=== PATIENT | female | born 1990 | race Caucasian/White ===

== ENCOUNTER 2019-01-11 06:29 | Emergency (ER) | payer OTHER ==
--- NOTE | 2019-01-11 06:50 | ED Physician Documentation ---
PD HPI FEMALE - Stated complaint Stated Complaint: FEMALE - Chief complaint Chief Complaint: General - History obtained from History obtained from: Patient - History of Present Illness Timing - onset: How many days ago (2) Timing - duration: Days (2) Timing - details: Gradual onset, Still present (She has had 2 days of lower abdominal cramping and initially spotting of blood but then has had increased bleeding passage of small clots and red blood. She states comparatively its less bleeding than a menstrual period but more than just spotting. She denies any nausea fevers or lightheadedness. She talked to her TESTING AND REGULATING TECHNICIAN who referred her in to the ER for evaluation and ultrasound.), Waxing and waning Associated symptoms: Pelvic pain (more left sided lower abd pain/cramping), Vaginal bleeding. No: Fever Contributing factors: (7 weeks by dates) [employer] History: G (3), P (2) Similar symptoms before: Has not had sx before Review of Systems Constitutional: denies: Fever Nose: reports: Rhinorrhea / runny nose, Congestion Throat: reports: Sore throat (had URI symptoms for few days and is improved) Respiratory: denies: Dyspnea, Cough GI: denies: Nausea, Vomiting, Diarrhea : reports: Vaginal bleeding. denies: Dysuria, Discharge Neurologic: denies: Generalized weakness, Near syncope PD PAST MEDICAL HISTORY - Past Medical History Cardiovascular: None Respiratory: None Neuro: None Endocrine/Autoimmune: None - Allergies Allergies/Adverse Reactions: Allergies Allergy/AdvReac Type Severity Reaction Status Date / Time No Known Drug Allergies Allergy Verified 01/11/19 06:34 PD ED PE NORMAL - Vitals Vital signs reviewed: Yes - General General: Alert and oriented X 3, No acute distress, Well developed/nourished - Cardiac Cardiac: RRR, No murmur - Respiratory Respiratory: Clear bilaterally - Abdomen Abdomen: Normal bowel sounds, Soft, Non distended, No organomegaly, Other (some tenderness without guarding LLQ/suprapubic area. ) - Female Female : Deferred - Derm Derm: Normal color, Warm and dry Results - Vitals Vitals: Vital Signs - 24 hr 01/11/19 06:31 Temperature 37.0 C Heart Rate 113 H Respiratory 16 Rate Blood Pressure 130/75 O2 Saturation 100 Oxygen O2 Source Room air PD MEDICAL DECISION MAKING - ED course Complexity details: considered differential (early with vag bleeding and pelvic cramping, more to left. Will get U/S, CBC, HCG and blood type. Tried to distinguish viability with spotting versus miscarriage versus threatened miscarriage versus ectopic.), d/w patient Departure - Departure Clinical Impression: Vaginal bleeding affecting early
[2019-01-11 07:24] LABS: BASOPHILS % (AUTO) 0.3 %; EOSINOPHILS # (AUTO) 0.1 10^3/uL (0.0-0.7); HGB - HEMOGLOBIN 13.4 g/dL (12.0-16.0); LYMPHOCYTES % (AUTO) 12.9 %; MEAN CORPUSCULAR HEMOGLOBIN 29.1 pg (27.0-31.0); MEAN CORPUSCULAR HGB CONC 32.2 g/dL (32.0-36.0); MEAN CORPUSCULAR VOLUME 90.4 fL (81.0-99.0); MEAN PLATELET VOLUME 10.5 fL (7.9-10.8); MONOCYTES # (AUTO) 0.5 10^3/uL (0.0-1.0); MONOCYTES % (AUTO) 6.2 %; NEUTROPHILS # (AUTO) 6.2 10^3/uL (1.5-6.6); NEUTROPHILS % (AUTO) 79.3 %; PLT - PLATELET COUNT 205 10^3/uL (130-450); RED CELL DISTRIBUTION WIDTH 12.2 % (12.0-15.0); WHITE BLOOD COUNT 7.8 x10^3/uL (4.8-10.8)
[2019-01-11 07:35] LABS: ALBUMIN 4.7 g/dL (3.2-5.5); ALBUMIN/GLOBULIN RATIO 1.7 (1.0-2.2); BILIRUBIN,TOTAL 0.7 mg/dL (0.2-1.0); CALCIUM 9.3 mg/dL (8.5-10.3); CREATININE 0.6 mg/dL (0.4-1.0); TOTAL PROTEIN 7.5 g/dL (6.7-8.2)
--- NOTE | 2019-01-11 08:31 | Ultrasound Report ---
Reason: early preg, left lower abd pain/vag bleed Procedure Date: 01/11/2019 Accession Number: [id number] / [id number] Procedure: US - OB First Trimester CPT Code: Final Report FULL RESULT: EXAM: FIRST TRIMESTER OBSTETRIC ULTRASOUND (Less than 11 weeks) EXAM DATE: 01/11/2019 08:16 AM. CLINICAL HISTORY: 28-year-old female. Early preg, left lower abd pain/vag bleed. LMP: 11/24/2018. COMPARISONS: None. TECHNIQUE: Transabdominal and transvaginal ultrasound examination with static image documentation. CLINICAL DATES: EGA 6 weeks 6 days with OLEGARIO 08/31/2019 based on LMP. ASSESSMENT: Gestational Sac: Single in the lower uterine segment. Mean gestational sac diameter: 7.0 mm = 5 weeks 3 days. Embryo: CRL (crown-rump length) 3.5 mm = 6 weeks 0 days. Cardiac activity: 129 beats per minute. Yolk sac: 3.0 mm. Amniotic fluid: Not accurately assessed at this gestational age. Early placenta: Not visible at this gestational age. Other: Tiny 1.2 x 0.5 x 1.3 cm superior and 0.6 x 0.2 x 0.4 cm inferior perigestational fluid collections demonstrated. MATERNAL STRUCTURES: Uterus: Retroverted. Unremarkable. Cervix: Closed. Right Ovary/Adnexa: The ovary measures 2.6 x 1.8 x 1.3 cm, volume 3.2 cc. Unremarkable. Left Ovary/Adnexa: The ovary measures 2.1 x 2.3 x 2.1 cm, volume 5.4 cc. 0.9 x 1.0 x 1.2 cm hypoechoic focus, possibly a corpus luteum. Free Fluid: None. Other: None. IMPRESSION: 1. Single viable intrauterine in the lower uterine segment at EGA 6 weeks 0 days with OLEGARIO 09/06/2019 based on crown-rump length, which is concordant with clinical dates. 2. Assigned dating is OLEGARIO 08/31/2019 based on LMP. 3. Minimal perigestational fluid/hemorrhage. 4. Cervix closed. 5. Correlate with serial quantitative beta hCG. RADIA
[2019-01-11 08:46] VITALS: BP 118/72
--- NOTE | 2019-01-11 09:00 | ED Physician Documentation ---
ED Addendum - Addendum Addendum: 01/11/19 08:58 I took over the patient with Dr. Rosa. Her hCG is 2596. Her pelvic ultrasound reveals an intrauterine gestation approximately 6 weeks and 0 days. There is a corpus luteum cyst on the left. We will have her follow-up with OB for further care. Patient counseled regarding signs and symptoms for which I believe and urgent re-evaluation would be necessary. Patient with good understanding of and agreement to plan and is comfortable going home at this time This document was made in part using voice recognition software. While efforts are made to proofread this document, sound alike and grammatical errors may occur. IMPRESSION: 1. Single viable intrauterine in the lower uterine segment at EGA 6 weeks 0 days with OLEGARIO 09/06/2019 based on crown-rump length, which is concordant with clinical dates. 2. Assigned dating is OLEGARIO 08/31/2019 based on LMP. 3. Minimal perigestational fluid/hemorrhage. 4. Cervix closed. 5. Correlate with serial quantitative beta hCG. Departure - Departure Disposition: 01 Home, Self Care Clinical Impression: Vaginal bleeding affecting early Condition: Good Instructions: ED Miscarriage Poss Follow-Up: Chaka Barrow MD [Primary Care Provider] - Within 1 week Comments: Follow-up with your doctor for further care. Return if you worsen. You appear to have a viable intrauterine that is approximately 6 weeks and 0 days along. Your hCG is 2596 and your doctor may want to repeat this in 3 to 4 days to ensure that it is rising adequately.
[2019-01-11 09:20] LABS: BILIRUBIN,URINE NEGATIVE (NEGATIVE); GLUCOSE, URINE (UA) NEGATIVE (NEGATIVE); KETONES,URINE (UA) NEGATIVE (NEGATIVE); LEUKOCYTE ESTERASE, URINE NEGATIVE (NEGATIVE); NITRITE,URINE NEGATIVE (NEGATIVE); OCCULT BLOOD,URINE LARGE (NEGATIVE); PH,URINE 7.5 PH (5.0-7.5); PROTEIN,URINE NEGATIVE (NEGATIVE); UROBILINOGEN,URINE 0.2 (NORMAL) E.U./dL (NORMAL)
[2019-01-11 09:28] LABS: CLARITY,URINE HAZY (CLEAR)
[2019-01-11 09:41] LABS: BACTERIA,URINE Few /HPF (None Seen); RBC,URINE 0-5 /HPF (0-5); SQUAMOUS EPITHELIAL CELL,UR FEW Squamous (<= Few)
== END 2019-01-11 09:58 | disposition home or self-care (01) ==
LOC: ED 06:29
DX: O46.91 Antepartum hemorrhage, unspecified, first trimester (principal); Z3A.01 Less than 8 weeks gestation of pregnancy
CPT/HCPCS: 36415; 76801; 76817; 80053; 81001; 81003; 83690; 84702; 85025; 86850; 86900; 86901; 87086; 99282; 99284

== ENCOUNTER 2019-01-13 09:19 | Outpatient (CLI) | payer OTHER ==
[2019-01-13 09:50] LABS: BASOPHILS % (AUTO) 0.6 %; EOSINOPHILS # (AUTO) 0.2 10^3/uL (0.0-0.7); EOSINOPHILS % (AUTO) 2.9 %; HGB - HEMOGLOBIN 12.8 g/dL (12.0-16.0); LYMPHOCYTES # (AUTO) 1.7 10^3/uL (1.5-3.5); MEAN CORPUSCULAR HEMOGLOBIN 29.5 pg (27.0-31.0); MEAN CORPUSCULAR HGB CONC 32.7 g/dL (32.0-36.0); MEAN CORPUSCULAR VOLUME 90.3 fL (81.0-99.0); MEAN PLATELET VOLUME 9.3 fL (7.9-10.8); MONOCYTES # (AUTO) 0.5 10^3/uL (0.0-1.0); MONOCYTES % (AUTO) 6.9 %; NEUTROPHILS # (AUTO) 4.1 10^3/uL (1.5-6.6); NEUTROPHILS % (AUTO) 63.1 %; PLT - PLATELET COUNT 259 10^3/uL (130-450); RED BLOOD COUNT 4.34 10^6/uL (4.20-5.40); RED CELL DISTRIBUTION WIDTH 11.9 % (12.0-15.0); WHITE BLOOD COUNT 6.5 x10^3/uL (4.8-10.8)
[2019-01-13 09:50] LABS: MUDS CUTOFF CONCENTRATIONS CUTOFF CONC BELOW:
[2019-01-13 09:58] LABS: BILIRUBIN,URINE NEGATIVE (NEGATIVE); GLUCOSE, URINE (UA) NEGATIVE (NEGATIVE); KETONES,URINE (UA) NEGATIVE (NEGATIVE); LEUKOCYTE ESTERASE, URINE TRACE (NEGATIVE); NITRITE,URINE NEGATIVE (NEGATIVE); OCCULT BLOOD,URINE LARGE (NEGATIVE); PROTEIN,URINE NEGATIVE (NEGATIVE); UROBILINOGEN,URINE 0.2 (NORMAL) E.U./dL (NORMAL)
[2019-01-13 10:08] LABS: CLARITY,URINE HAZY (CLEAR); RBC,URINE 0-5 /HPF (0-5)
[2019-01-13 10:09] LABS: BACTERIA,URINE Few /HPF (None Seen); SQUAMOUS EPITHELIAL CELL,UR MOD Squamous (<= Few)
[2019-01-13 10:12] LABS: AMPHETAMINE SCREEN,URINE NEGATIVE (NEGATIVE); BENZODIAZEPINES SCREEN, URINE NEGATIVE (NEGATIVE); COCAINE SCREEN URINE NEGATIVE (NEGATIVE); METHADONE SCREEN, URINE NEGATIVE (NEGATIVE); METHAMPHETAMINES SCREEN, URINE NEGATIVE (NEGATIVE); OPIATE SCREEN, URINE NEGATIVE (NEGATIVE); OXYCODONE SCREEN, URINE NEGATIVE (NEGATIVE); PROPOXYPHENE SCREEN, URINE NEGATIVE (NEGATIVE); TRICYCLIC ANTIDEPRESSANT,URINE NEGATIVE (NEGATIVE)
[2019-01-14 11:40] LABS: HEPATITIS B SURFACE ANTIGEN NON-REACTIVE (NON-REACTIVE); HEPATITIS C ANTIBODY NON-REACTIVE (NON-REACTIVE)
[2019-01-14 15:26] LABS: HIV AG/AB 4TH GEN NON-REACTIVE (NON-REACTIVE)
== END 2019-01-13 09:20 | disposition home or self-care (01) ==
LOC: LAB 09:19
PROVIDERS: ATTEND Obstetrics & Gynecology
DX: O20.0 Threatened abortion (principal); Z3A.00 Weeks of gestation of pregnancy not specified
CPT/HCPCS: 36415; 80306; 81001; 81599; 84144; 84702; 85025; 86592; 86762; 86803; 86850; 86900; 86901; 87086; 87340; 87389

== ENCOUNTER 2019-01-15 09:45 | Outpatient (CLI) | payer OTHER | END 2019-01-15 09:46 | disposition home or self-care (01) | LOC: LAB 09:45 | PROVIDERS: ATTEND Obstetrics & Gynecology | DX: O20.0 Threatened abortion (principal); Z3A.00 Weeks of gestation of pregnancy not specified | CPT/HCPCS: 36415; 84702 ==

== ENCOUNTER 2019-01-19 09:24 | Outpatient (CLI) | payer OTHER ==
--- NOTE | 2019-01-19 11:42 | Ultrasound Report ---
Reason: TEST POSITIVE Procedure Date: 01/19/2019 Accession Number: [id number] / [id number] Procedure: US - OB First Trimester CPT Code: Final Report FULL RESULT: EXAM: FIRST TRIMESTER OBSTETRIC ULTRASOUND (Less than 11 weeks) EXAM DATE: 01/19/2019 11:09 AM. CLINICAL HISTORY: TEST POSITIVE. Patient bleeding LMP: Unknown. COMPARISONS: OB FIRST TRIMESTER 01/11/2019 7:16 AM. TECHNIQUE: Transabdominal and transvaginal ultrasound examination with static image documentation. CLINICAL DATES: EGA 7 weeks 1 day with OLEGARIO 09/06/2019 based on prior ultrasound/other. ASSESSMENT: Gestational Sac: Single in cervical region. Mean gestational sac diameter: 9 mm = 5 weeks 5 days. Embryo: CRL (crown-rump length) 7.5 mm = 6 weeks 5 days. Cardiac activity: 0 beats per minute. Yolk sac: 3.7 mm. Amniotic fluid: Not accurately assessed at this gestational age. Early placenta: Not visible at this gestational age. Other: No perigestational fluid collection demonstrated. MATERNAL STRUCTURES: Uterus: Retroverted. Unremarkable. Cervix: Open. Right Ovary/Adnexa: The ovary measures 4.1 x 1.2 x 1.6 cm, volume 4.3 cc. Unremarkable. Left Ovary/Adnexa: The ovary measures 2 x 1.2 x 2.1 cm, volume 2.8 cc. Unremarkable. Free Fluid: None. Other: None. IMPRESSION: 1. Single demise at EGA 6 weeks 5 days with OLEGARIO 09/09/2019 based on crown-rump length, which is concordant with prior ultrasound dating. ALLI The above call report findings were discussed with Rona Gandara by Dr. Amanda Elliott at 11:41 AM on 01/19/2019.
== END 2019-01-19 09:25 | disposition home or self-care (01) ==
LOC: DI 09:24
PROVIDERS: ATTEND Obstetrics & Gynecology
DX: O02.1 Missed abortion (principal)
CPT/HCPCS: 36415; 76801; 84702

== ENCOUNTER 2020-01-20 08:00 | Outpatient (CLI) | payer OTHER ==
[2020-01-20 16:42] LABS: MUDS CUTOFF CONCENTRATIONS CUTOFF CONC BELOW:
[2020-01-20 17:00] LABS: BILIRUBIN,URINE NEGATIVE (NEGATIVE); GLUCOSE, URINE (UA) NEGATIVE (NEGATIVE); KETONES,URINE (UA) NEGATIVE (NEGATIVE); LEUKOCYTE ESTERASE, URINE NEGATIVE (NEGATIVE); NITRITE,URINE NEGATIVE (NEGATIVE); OCCULT BLOOD,URINE NEGATIVE (NEGATIVE); PH,URINE 7.5 PH (5.0-7.5); PROTEIN,URINE NEGATIVE (NEGATIVE); UROBILINOGEN,URINE 0.2 (NORMAL) E.U./dL (NORMAL)
[2020-01-20 17:05] LABS: AMPHETAMINE SCREEN,URINE NEGATIVE (NEGATIVE); BENZODIAZEPINES SCREEN, URINE NEGATIVE (NEGATIVE); COCAINE SCREEN URINE NEGATIVE (NEGATIVE); METHADONE SCREEN, URINE NEGATIVE (NEGATIVE); METHAMPHETAMINES SCREEN, URINE NEGATIVE (NEGATIVE); OPIATE SCREEN, URINE NEGATIVE (NEGATIVE); OXYCODONE SCREEN, URINE NEGATIVE (NEGATIVE); PROPOXYPHENE SCREEN, URINE NEGATIVE (NEGATIVE); TRICYCLIC ANTIDEPRESSANT,URINE NEGATIVE (NEGATIVE)
[2020-01-20 17:17] LABS: BACTERIA,URINE Few /HPF (None Seen); CLARITY,URINE CLEAR (CLEAR); RBC,URINE None Seen /HPF (0-5); SQUAMOUS EPITHELIAL CELL,UR MOD Squamous (<= Few)
== END 2020-01-20 23:59 | disposition home or self-care (01) ==
LOC: LAB.R 08:00
PROVIDERS: ATTEND Nurse Practitioner Obstetrics & Gynecology
DX: Z32.01 Encounter for pregnancy test, result positive (principal)
CPT/HCPCS: 80306; 81001; 87086

== ENCOUNTER 2020-02-02 09:44 | Outpatient (CLI) | payer OTHER | END 2020-02-02 09:45 | disposition home or self-care (01) | LOC: LAB 09:44 | PROVIDERS: ATTEND Nurse Practitioner Obstetrics & Gynecology | DX: O20.0 Threatened abortion (principal) | CPT/HCPCS: 36415; 84144; 84702; 86900; 86901 ==

== ENCOUNTER 2020-02-03 09:14 | Outpatient (CLI) | payer OTHER ==
--- NOTE | 2020-02-03 11:25 | Ultrasound Report ---
PROCEDURE: OB First Trimester INDICATIONS: POS PREG TEST OUTSIDE/PRIOR DATING DATA: Last menstrual period (LMP): 12/05/2019. LMP-based estimated date of delivery (OLEGARIO): 09/10/2020. First dating scan (date and location): 02/03/2020. Estimated date of delivery (OLEGARIO) from first dating scan: 09/11/20. TECHNIQUE: Real-time scanning was performed of the fetus and maternal pelvic organs, with image documentation. COMPARISON: None FINDINGS: Embryo: An intrauterine diamniotic dichorionic twin is present, as evidenced by separate p lacental sites and/or intervening membrane thickness of greater than 2 mm at this early gestational a ge. Fetus A: heart rate measured 178 bpm. [place]-rump length measures 1.9 cm, 8 weeks 3 days. Fetus B: heart rate measures 182 bpm. [place]-rump length measures 1.9 cm, 8 weeks 3 days. No perigestational hemorrhage identified. Measurement variability in dating: +/- 4 weeks by LMP, +/- 7 days by mean sac diameter (use before 6 weeks gestation if crown-rump length not able to be measured), +/- 5 days by crown-rump length (6-12 weeks gestation). Maternal organs: Ovaries unremarkable. Limited images through the kidneys demonstrate no hydronephr osis. IMPRESSION: Twin, living intrauterine gestation as above. Reviewed by: Gideon Le MD on 02/03/2020 11:24 AM PST Approved by: Gideon Le MD on 02/03/2020 11:24 AM PST Station ID: [id number]
--- NOTE | 2020-02-03 13:02 | Ultrasound Report ---
PROCEDURE: OB First Trimester Addl Fetus INDICATIONS: POS PREG TEST OUTSIDE/PRIOR DATING DATA: Last menstrual period (LMP): 12/05/2019. LMP-based estimated date of delivery (OLEGARIO): 09/10/2020. First dating scan (date and location): 02/03/2020. Estimated date of delivery (OLEGARIO) from first dating scan: 09/11/20. TECHNIQUE: Real-time scanning was performed of the fetus and maternal pelvic organs, with image documentation. COMPARISON: None FINDINGS: Embryo: An intrauterine diamniotic dichorionic twin is present, as evidenced by separate p lacental sites and/or intervening membrane thickness of greater than 2 mm at this early gestational a ge. Fetus A: heart rate measured 178 bpm. [place]-rump length measures 1.9 cm, 8 weeks 3 days. Fetus B: heart rate measures 182 bpm. [place]-rump length measures 1.9 cm, 8 weeks 3 days. No perigestational hemorrhage identified. Measurement variability in dating: +/- 4 weeks by LMP, +/- 7 days by mean sac diameter (use before 6 weeks gestation if crown-rump length not able to be measured), +/- 5 days by crown-rump length (6-12 weeks gestation). Maternal organs: Ovaries unremarkable. Limited images through the kidneys demonstrate no hydronephr osis. IMPRESSION: Twin, living intrauterine gestation as above. Reviewed by: Gideon Le MD on 02/03/2020 1:01 PM PST Approved by: Gideon Le MD on 02/03/2020 1:01 PM PST Station ID: [id number]
== END 2020-02-03 09:15 | disposition home or self-care (01) ==
LOC: DI 09:14
PROVIDERS: ATTEND Nurse Practitioner Obstetrics & Gynecology
DX: O30.001 Twin pregnancy, unspecified number of placenta and unspecified number of amniotic sacs, first trimester (principal); Z3A.08 8 weeks gestation of pregnancy

== ENCOUNTER 2020-02-24 15:51 | Outpatient (CLI) | payer OTHER ==
[2020-02-24 16:13] LABS: BASOPHILS % (AUTO) 0.4 %; EOSINOPHILS # (AUTO) 0.3 10^3/uL (0.0-0.7); EOSINOPHILS % (AUTO) 3.5 %; HCT - HEMATOCRIT 35.6 % (37.0-47.0); HGB - HEMOGLOBIN 11.9 g/dL (12.0-16.0); LYMPHOCYTES # (AUTO) 1.6 10^3/uL (1.5-3.5); LYMPHOCYTES % (AUTO) 19.4 %; MEAN CORPUSCULAR HGB CONC 33.4 g/dL (32.0-36.0); MEAN CORPUSCULAR VOLUME 89.7 fL (81.0-99.0); MEAN PLATELET VOLUME 9.5 fL (7.9-10.8); MONOCYTES # (AUTO) 0.6 10^3/uL (0.0-1.0); MONOCYTES % (AUTO) 7.5 %; NEUTROPHILS # (AUTO) 5.7 10^3/uL (1.5-6.6); NEUTROPHILS % (AUTO) 68.8 %; PLT - PLATELET COUNT 212 10^3/uL (130-450); RED BLOOD COUNT 3.97 10^6/uL (4.20-5.40); RED CELL DISTRIBUTION WIDTH 12.6 % (12.0-15.0); WHITE BLOOD COUNT 8.3 x10^3/uL (4.8-10.8)
[2020-02-25 12:27] LABS: HEPATITIS C ANTIBODY NON-REACTIVE (NON-REACTIVE)
[2020-02-25 14:12] LABS: HEPATITIS B SURFACE ANTIGEN NON-REACTIVE (NON-REACTIVE); HIV AG/AB 4TH GEN NON-REACTIVE (NON-REACTIVE)
== END 2020-02-24 15:52 | disposition home or self-care (01) ==
LOC: LAB 15:51
PROVIDERS: ATTEND Nurse Practitioner Obstetrics & Gynecology
DX: Z36.89 Encounter for other specified antenatal screening (principal)
CPT/HCPCS: 36415; 81599; 85025; 86592; 86762; 86787; 86803; 86850; 86900; 86901; 87340; 87389

== ENCOUNTER 2020-06-23 09:09 | Outpatient (CLI) | payer OTHER | END 2020-06-23 09:10 | disposition home or self-care (01) | LOC: LAB 09:09 | PROVIDERS: ATTEND Obstetrics & Gynecology | DX: O09.90 Supervision of high risk pregnancy, unspecified, unspecified trimester (principal); O30.049 Twin pregnancy, dichorionic/diamniotic, unspecified trimester | CPT/HCPCS: 36415; 81599; 82950 ==

== ENCOUNTER 2020-07-20 10:40 | Outpatient (CLI) | payer OTHER ==
[2020-07-20 11:13] LABS: HCT - HEMATOCRIT 33.6 % (37.0-47.0); HGB - HEMOGLOBIN 11.5 g/dL (12.0-16.0); MEAN CORPUSCULAR HEMOGLOBIN 30.7 pg (27.0-31.0); MEAN CORPUSCULAR HGB CONC 34.2 g/dL (32.0-36.0); MEAN CORPUSCULAR VOLUME 89.6 fL (81.0-99.0); MEAN PLATELET VOLUME 9.6 fL (7.9-10.8); RED BLOOD COUNT 3.75 10^6/uL (4.20-5.40); RED CELL DISTRIBUTION WIDTH 13.1 % (12.0-15.0); WHITE BLOOD COUNT 9.4 x10^3/uL (4.8-10.8)
[2020-07-20 11:41] LABS: % IRON SATURATION 5 % (20-50); IRON 32 ug/dL (28-170); TOTAL IRON BINDING CAPACITY 602 ug/dL (250-450); TRANSFERRIN 430 mg/dL (192-382)
== END 2020-07-20 10:41 | disposition home or self-care (01) ==
LOC: LAB 10:40
PROVIDERS: ATTEND Obstetrics & Gynecology
DX: O09.90 Supervision of high risk pregnancy, unspecified, unspecified trimester (principal)
CPT/HCPCS: 36415; 82728; 83540; 84466; 85027

== ENCOUNTER 2020-08-01 09:30 | Outpatient (CLI) | payer OTHER | END 2020-08-01 23:59 | disposition home or self-care (01) | LOC: LAB.WC 09:30 | PROVIDERS: ATTEND Obstetrics & Gynecology | DX: O09.90 Supervision of high risk pregnancy, unspecified, unspecified trimester (principal); O60.00 Preterm labor without delivery, unspecified trimester | CPT/HCPCS: 36415; 82731; 87797 ==

== ENCOUNTER 2020-08-08 15:30 | Outpatient (CLI) | payer OTHER ==
[2020-08-08 17:04] VITALS: BP 98/65
--- NOTE | 2020-08-08 18:52 | PROVIDER PROGRESS NOTE ---
- HPI Chief Complaint: Labor Check Current : Current EDU 09/10/20 Gestation 35 Weeks and 2 Days 4 Para 2 Vital Signs Temperature 98.1 F 08/08/20 17:00 Heart Rate 86 08/08/20 17:00 Respiratory Rate 18 08/08/20 17:00 Blood Pressure 98/65 08/08/20 17:00 O2 Saturation 98 08/08/20 17:00 Temperature 98.1 F 08/08/20 17:00 Heart Rate 86 08/08/20 17:00 Respiratory Rate 18 08/08/20 17:00 Blood Pressure 98/65 08/08/20 17:00 O2 Saturation 98 08/08/20 17:00 - Procedures OB Procedure Performed: NST Diagnosis/Indication for NST: labor NST Procedure: NST Procedure Start Date 08/08/20 Start Time 15:55 Stop Time 16:55 Vibroacoustic Stimulation Used No Patient States Movement Yes EFM A: 145 mod chava 15x15 accels no decels EFM B: 140 mod chava 15x15 accels no decels TOCO: intermittent then quiet Service Date of procedure: 08/08/20 Procedure Details: Patient is a 29 yo at 35+2 with unruly twin gestatation here with back pain and cramping. No LOF/CTX/VB. Initial SVE was 0.5/40%/high posterior ROS: As per HPI, otherwise remaining systems are negative GEN: NAD HEENT: NCAT CV: RR RESP: nl effort ABD; gravid, S&NT EXT: no LE edema PSYCH appropriate affect NEURO: A&O Observed over one hour with decrease in contractions and decreased irritability on the tocometer. Cat I tracing for both Twin A and Twin B GBS collected Warning signs reviewed DX: IUP at 35+2 Unruly twin gestation False labor
== END 2020-08-08 18:00 | disposition home or self-care (01) ==
LOC: WFO 15:30 → FBP 15:34 → WFO 18:00
PROVIDERS: ATTEND Obstetrics & Gynecology
DX: O47.03 False labor before 37 completed weeks of gestation, third trimester (principal); O30.043 Twin pregnancy, dichorionic/diamniotic, third trimester; Z3A.35 35 weeks gestation of pregnancy
CPT/HCPCS: 59025; 99213; 99214; 99215

== ENCOUNTER 2020-08-12 10:03 | Outpatient (CLI) | payer OTHER ==
[2020-08-12 10:31] VITALS: BP 105/65
--- NOTE | 2020-08-12 14:08 | PROCEDURE REPORT ---
- HPI Current EDU 09/10/20 Gestation 35 Weeks and 6 Days 4 Para 2 Vital Signs Temperature 98.8 F 08/12/20 10:29 Heart Rate 81 08/12/20 10:29 Respiratory Rate 16 08/12/20 10:29 Blood Pressure 105/65 08/12/20 10:29 Temperature 98.8 F 08/12/20 10:29 Heart Rate 81 08/12/20 10:29 Respiratory Rate 16 08/12/20 10:29 Blood Pressure 105/65 08/12/20 10:29 O2 Saturation NST twin gestation. Baby A vertex baseline 135 with Moderate variability and accelerations. No decelerations. Category I and Reactive NST. NST twin gestation. Baby B breech presentation, baseline 135 with Moderate Variability. No decelerations. Category I and Reactive NST - NST Procedure NST Procedure Start Date 08/12/20 Start Time 10:18 Stop Time 10:55 Vibroacoustic Stimulation Used No Patient States Movement Yes NST performed for twin gestation.
== END 2020-08-12 11:00 | disposition home or self-care (01) ==
LOC: WFO 10:03 → FBP 10:04 → WFO 11:00
PROVIDERS: ATTEND Obstetrics & Gynecology
DX: O30.043 Twin pregnancy, dichorionic/diamniotic, third trimester (principal); Z3A.35 35 weeks gestation of pregnancy
CPT/HCPCS: 59025

== ENCOUNTER 2020-08-12 18:59 | Outpatient (CLI) | payer OTHER ==
--- NOTE | 2020-08-13 01:05 | Ultrasound Report ---
PROCEDURE: OB Limited INDICATIONS: TWIN GESTATION DICHORIONIC/DIAMNIOTIC UN SPEC TRIM OUTSIDE/PRIOR DATING DATA: Last menstrual period (LMP): 12/05/2019. LMP-based estimated date of delivery (OLEGARIO): 09/10/2020. First dating scan (date and location): 02/03/2020. Estimated date of delivery (OLEGARIO) from first dating scan: 09/11/2020. The below data below was generated using the ultrasound OLEGARIO of 09/10/2020 TECHNIQUE: Real-time scanning was performed of the fetus, with image documentation. Endovaginal scanning: Not performed COMPARISON: 02/03/2020 FINDINGS: Twin living intrauterine dichorionic, diamniotic gestations are present. Maternal cervical canal not well visualized but appears closed. Presentation Twin A: Cephalic Placenta: Placental position is posterior/fundal. Amniotic fluid index: 5.12 cm maximum vertical pocket heart rate: 141 beats per minutes. Estimated gestational age from initial scan: 35 weeks and 6 days. Presentation Twin B: Transverse lie with head to maternal right Placenta: Placental position is anterior. Amniotic fluid index: 6.56 cm maximum vertical pocket. heart rate: 140 beats per minutes. Estimated gestational age from initial scan: 35 weeks and 6 days. IMPRESSION: Twin living intrauterine gestations with estimated gestational ages of approximately 35 weeks and 6 d ays and maximum vertical fluid pocket measurements of 5.12 cm and 6.56 cm for Twin A and Twin B respe ctively. Reviewed by: Serafin Flores MD on 08/13/2020 1:04 AM PDT Approved by: Serafin Flores MD on 08/13/2020 1:04 AM PDT Station ID: [id number]
== END 2020-08-12 19:00 | disposition home or self-care (01) ==
LOC: DI 18:59
PROVIDERS: ATTEND Obstetrics & Gynecology
DX: O30.049 Twin pregnancy, dichorionic/diamniotic, unspecified trimester (principal); Z3A.35 35 weeks gestation of pregnancy

== ENCOUNTER 2020-08-16 10:42 | Outpatient (CLI) | payer OTHER ==
[2020-08-16 11:57] VITALS: BP 107/70
--- NOTE | 2020-08-16 13:01 | PROCEDURE REPORT ---
- HPI Current EDU 09/05/20 Gestation 37 Weeks and 1 Days 3 Para 2 Vital Signs Heart Rate 86 08/16/20 10:53 Respiratory Rate 18 08/16/20 10:53 Blood Pressure 107/70 08/16/20 10:53 Temperature Heart Rate 86 08/16/20 10:53 Respiratory Rate 18 08/16/20 10:53 Blood Pressure 107/70 08/16/20 10:53 O2 Saturation - NST Procedure NST Procedure Start Date 08/16/20 Start Time 11:00 Stop Time 12:02 Patient States Movement Yes 29 yo at 37 1/7 twin gestation presented for NST. Patient was seen in the office this morning. Patient reports good movement. Patient is having some tightening, not "contractions". NST Twin A- Baseline 140's with moderate variability and accelerations are present. No contractions. No decelerations. Category I and Reactive monitor strip. NST Twin B- Baseline 140's with moderate variability and accelerations. No contractions. No decelerations. Category I and Reactive monitor strip. Discussed labor precautions and Delivery options. Ultrasounded for position and Twin A vertex and Twin B head in maternal right side, vertex to transverse. Keep all scheduled appointments. Labor Precautions.
== END 2020-08-16 12:15 | disposition home or self-care (01) ==
LOC: WFO 10:42 → FBP 10:45 → WFO 12:15
PROVIDERS: ATTEND Obstetrics & Gynecology
DX: O30.003 Twin pregnancy, unspecified number of placenta and unspecified number of amniotic sacs, third trimester (principal); Z3A.37 37 weeks gestation of pregnancy
CPT/HCPCS: 59025; 99213

== ENCOUNTER 2020-08-19 13:59 | Outpatient (CLI) | payer OTHER ==
[2020-08-19 14:33] VITALS: BP 111/57
--- NOTE | 2020-08-19 15:50 | PROCEDURE REPORT ---
- HPI Diagnosis/Indication for NST: Other (Di/Di twins,) Current EDU 09/10/20 Gestation 36 Weeks and 6 Days Vital Signs Temperature 98.2 F 08/19/20 14:10 Heart Rate 91 08/19/20 14:10 Respiratory Rate 19 08/19/20 14:10 Blood Pressure 111/57 L 08/19/20 14:10 O2 Saturation 99 08/19/20 14:10 Temperature 98.2 F 08/19/20 14:10 Heart Rate 91 08/19/20 14:10 Respiratory Rate 19 08/19/20 14:10 Blood Pressure 111/57 L 08/19/20 14:10 O2 Saturation 99 08/19/20 14:10 - NST Procedure NST Procedure Start Date 08/19/20 Start Time 14:08 Stop Time 14:48 Vibroacoustic Stimulation Used No Patient States Movement Yes 29yo here for monitoring for Twin Gestation. Patient had some back pain and mild contractions last night, but fell asleep. Patient has decided she wants to attempt a vaginal delivery. Patient is scheduled for Ultrasound today at 3:30pm. Patient is not feeling contractions today. Patient feels good movement of both fetuses. Patient denies SROM or vaginal bleeding. NST: Twin A: Baseline 135 with Moderate variability and accelerations present, Accelerations are 15X15 and no decelerations. Irregular contractions. Category I monitor strip and meets Reactive Criteria for NST. Twin B: Baseline 130 with Moderate variability and accelerations present. Accelerations are 15X15. No decelerations. Cateory I monitor strip and meets Reactive Criteria for NST. Discussed need for patient to stay well hydrated. Patient understands Labor precautions and will return Saturday at 10:00am for NST if not delivered. - Results and Plan Findings/Impression: IUP 36 2/7 Twin Gestation, Di/Di twins
== END 2020-08-19 15:30 | disposition home or self-care (01) ==
LOC: FBP 13:59 → WFO 13:59 → FBP 14:00 → WFO 15:30
PROVIDERS: ATTEND Obstetrics & Gynecology
DX: O30.043 Twin pregnancy, dichorionic/diamniotic, third trimester (principal); Z3A.36 36 weeks gestation of pregnancy
CPT/HCPCS: 59025; 99212

== ENCOUNTER 2020-08-19 15:31 | Outpatient (CLI) | payer OTHER ==
--- NOTE | 2020-08-19 20:57 | Ultrasound Report ---
PROCEDURE: OB Limited INDICATIONS: TWIN GESTATION DICHORIONIC DIAMNIOTIC INSPEC TRIM OUTSIDE/PRIOR DATING DATA: Last menstrual period (LMP): 12/05/2019. LMP-based estimated date of delivery (OLEGARIO): 09/10/2020. First dating scan (date and location): 02/03/2020. Estimated date of delivery (OLEGARIO) from first dating scan: 09/11/2020. The below data below was generated using the LMP OLEGARIO of 09/10/2020 TECHNIQUE: Real-time scanning was performed of the fetus, with image documentation. COMPARISON: OB ultrasound 02/03/2020, 08/12/2020 FINDINGS: A dichorionic diamniotic intrauterine gestation is present. Presentation: Fetus A is cephalic, fetus B transverse with head to maternal right. Placenta: Placental position is posterior fundal. Amniotic fluid index: Fetus A MVP 6.2 cm, Fetus B MVP 5.1 cm, compared to 5.1 cm and 6.6 cm respectiv charles on prior exam. heart rate: 115 and 130 beats per minute for fetus A and fetus B. Maternal cervical canal: 3 cm long; normal length is 2.5 cm or more. Estimated gestational age from initial scan: 36 weeks 6 days. IMPRESSION: 1. Dichorionic diamniotic twin intrauterine . 2. MVP 6.2 cm and 5.1 cm for fetus A and fetus B respectively. Reviewed by: Antonella Reynaga MD on 08/19/2020 8:56 PM PDT Approved by: Antonella Reynaga MD on 08/19/2020 8:56 PM PDT Station ID: [id number]
== END 2020-08-19 15:32 | disposition home or self-care (01) ==
LOC: DI 15:31
PROVIDERS: ATTEND Obstetrics & Gynecology
DX: O30.043 Twin pregnancy, dichorionic/diamniotic, third trimester (principal); Z3A.36 36 weeks gestation of pregnancy

== ENCOUNTER 2020-08-23 09:59 | Outpatient (CLI) | payer OTHER ==
[2020-08-23 10:38] VITALS: BP 107/64
--- NOTE | 2020-08-25 23:52 | PROCEDURE REPORT ---
- HPI Diagnosis/Indication for NST: Multiple gestation Current EDU 09/10/20 Gestation 37 Weeks and 3 Days 3 Para 2 Vital Signs Temperature 98.4 F 08/23/20 10:37 Heart Rate 77 08/23/20 10:37 Respiratory Rate 18 08/23/20 10:37 Blood Pressure 107/64 08/23/20 10:37 Temperature 98.4 F 08/23/20 10:37 Heart Rate 77 08/23/20 10:37 Respiratory Rate 18 08/23/20 10:37 Blood Pressure 107/64 08/23/20 10:37 O2 Saturation - NST Procedure NST Procedure Start Date 08/23/20 Start Time 10:24 Stop Time 11:24 Vibroacoustic Stimulation Used No Patient States Movement Yes EFM Twin A 140 mod chava 15x15 accels no decels Twin B 145 mod chava 15x15 accels no decels TOCO: irritable - Results and Plan Findings/Impression: 29 yo at 37+3 ega with unruly twin gestation here for NST Cat I tracing x2 IOL scheduled in 2 days
== END 2020-08-23 11:30 | disposition home or self-care (01) ==
LOC: WFO 09:59 → FBP 10:02 → WFO 11:30
PROVIDERS: ATTEND Obstetrics & Gynecology
DX: O30.043 Twin pregnancy, dichorionic/diamniotic, third trimester (principal); Z3A.37 37 weeks gestation of pregnancy
CPT/HCPCS: 59025; 99213

== ENCOUNTER 2020-08-24 15:24 | Outpatient (CLI) | payer OTHER ==
--- NOTE | 2020-08-25 15:08 | Ultrasound Report ---
PROCEDURE: OB Limited INDICATIONS: TWIN GESTATION DICHORIONIC DIAMNIOTIC UNSPC TRIM OUTSIDE/PRIOR DATING DATA: Last menstrual period (LMP): 12/05/2019. LMP-based estimated date of delivery (OLEGARIO): 09/10/2020. First dating scan (date and location): 02/03/2020. Estimated date of delivery (OLEGARIO) from first dating scan: 09/11/2020. The below data below was generated using the ultrasound OLEGARIO TECHNIQUE: Real-time scanning was performed of the fetus, with image documentation. Endovaginal scanning: Performed COMPARISON: 02/03/2020, 08/19/2020 and 08/12/2020.. FINDINGS: A diamniotic, dichorionic twin living intrauterine gestation is present. Presentation: Fetus A is cephalic; fetus B is cephalic Placenta: Placental position is posterior fundal, without previa. Amniotic fluid index: Fetus A MVP 2.5 cm, fetus B MVP 4.1 cm. heart rate: Fetus A1 160 bpm; fetus B1 129 bpm.. Maternal cervical canal: Not evaluated. Estimated gestational age from initial scan: Fetus A 37 weeks 4 days; fetus B 37 weeks 4 days. IMPRESSION: 1. Living dichorionic, diamniotic twin intrauterine . 2. Fetus A in the MPV 2.5 cm in fetus B MVP 4.1 cm. Reviewed by: Gisell Ojeda MD, PhD on 08/25/2020 3:06 PM PDT Approved by: Gisell Ojeda MD, PhD on 08/25/2020 3:06 PM PDT Station ID: [id number]
== END 2020-08-24 15:25 | disposition home or self-care (01) ==
LOC: DI 15:24
PROVIDERS: ATTEND Obstetrics & Gynecology
DX: O30.043 Twin pregnancy, dichorionic/diamniotic, third trimester (principal); Z3A.37 37 weeks gestation of pregnancy

== ENCOUNTER 2020-08-25 07:30 | Inpatient (IN) | payer OTHER ==
[2020-08-25 08:48] LABS: BASOPHILS % (AUTO) 0.5 %; EOSINOPHILS # (AUTO) 0.2 10^3/uL (0.0-0.7); EOSINOPHILS % (AUTO) 2.6 %; HCT - HEMATOCRIT 36.4 % (37.0-47.0); HGB - HEMOGLOBIN 12.2 g/dL (12.0-16.0); LYMPHOCYTES # (AUTO) 1.3 10^3/uL (1.5-3.5); LYMPHOCYTES % (AUTO) 15.2 %; MEAN CORPUSCULAR HEMOGLOBIN 30.3 pg (27.0-31.0); MEAN CORPUSCULAR HGB CONC 33.5 g/dL (32.0-36.0); MEAN CORPUSCULAR VOLUME 90.3 fL (81.0-99.0); MONOCYTES # (AUTO) 0.7 10^3/uL (0.0-1.0); MONOCYTES % (AUTO) 7.8 %; NEUTROPHILS # (AUTO) 6.3 10^3/uL (1.5-6.6); NEUTROPHILS % (AUTO) 72.7 %; PLT - PLATELET COUNT 184 10^3/uL (130-450); RED BLOOD COUNT 4.03 10^6/uL (4.20-5.40); RED CELL DISTRIBUTION WIDTH 15.7 % (12.0-15.0); WHITE BLOOD COUNT 8.6 x10^3/uL (4.8-10.8)
[2020-08-25] MEDS ORDERED: LIDOCAINE-MPF 1% 30 ML VIAL ID PRN (09:03)
[2020-08-25] MEDS ORDERED: ACETAMINOPHEN 325 MG TABLET PO PRN (09:03)
[2020-08-25] MEDS ORDERED: OXYTOCIN 10 UNIT/ML VIAL IM PRN (09:03)
[2020-08-25] MEDS ORDERED: ONDANSETRON ODT 4 MG TABLET TL PRN (09:03)
[2020-08-25] MEDS ORDERED: fentaNYL 100 MCG/2 ML VIAL IVP PRN (09:03)
[2020-08-25] MEDS ORDERED: ONDANSETRON 4 MG/2 ML VIAL IVP PRN (09:03)
[2020-08-25] MEDS ORDERED: TRANEXAMIC ACID IN NACL 1,000 MG/100 ML BAG IV PRN (09:03)
[2020-08-25] MEDS ORDERED: METHYLERGONOVINE 0.2 MG/ML VIAL IM PRN (09:03)
[2020-08-25] MEDS ORDERED: miSOPROStoL 200 MCG TABLET BC PRN (09:03)
[2020-08-25] MEDS ORDERED: CARBOPROST TROMETHAMINE 250 MCG/ML AMP IM PRN (09:03)
[2020-08-25] MEDS ORDERED: SODIUM CHLORIDE FLUSH 0.9% 10 ML SYRINGE IVP PRN (09:03)
[2020-08-25] MEDS ORDERED: hydrALAZINE INJ 20 MG/ML VIAL IVP PRN ×2 (09:03)
[2020-08-25] MEDS ORDERED: LABETALOL 20 MG/4 ML SYRINGE IVP PRN ×3 (09:03)
[2020-08-25] MEDS ORDERED: NIFEdipine 10 MG CAPSULE PO PRN (09:03)
[2020-08-25] MEDS ORDERED: miSOPROStoL 100 MCG TABLET BC SCH (09:04)
[2020-08-25] MEDS ORDERED: OXYTOCIN/SODIUM CHLORIDE 500 ML IV SCH (10:00)
--- NOTE | 2020-08-25 10:22 | ANESTHESIA ---
Pre-Anesthesia VS, & Labs - Diagnosis twin gestation, 37 07/01 - Procedure induction of labor Vital Signs: Temp Pulse Resp BP Pulse Ox 36.8 C 08/25/20 07:50 Height: 5 ft 9 in - NPO Last Fluid Intake: clear liquids - Is Patient ?: Yes - Lab Results Current Lab Results: Laboratory Tests 08/25/20 08:23: Blood Type B POSITIVE, Antibody Screen NEGATIVE, Crossmatch IS Only See Detail 08/25/20 08:23: WBC 8.6, RBC 4.03 L, Hgb 12.2, Hct 36.4 L, MCV 90.3, MCH 30.3, MCHC 33.5, RDW 15.7 H, Plt Count 184, MPV 10.0, Neut # (Auto) 6.3, Lymph # (Auto) 1.3 L, [place] # (Auto) 0.7, Eos # (Auto) 0.2, Baso # (Auto) 0.0, Absolute Nucleated RBC 0.00, Nucleated RBC % 0.0 Fish Bones: 08/25/20 08:23 Home Medications and Allergies Active Medications Acetaminophen (Acetaminophen 325 Mg Tablet) 650 mg PO Q6H PRN PRN Reason: Pain or Fever Carboprost Tromethamine (Carboprost Tromethamine 250 Mcg/Ml Amp) 250 mcg IM Q15M PRN PRN Reason: Step 4: Hemorrhage protocol Stop: 08/30/20 09:04 Fentanyl (Fentanyl 100 Mcg/2 Ml Vial) 50 mcg IVP Q1H PRN PRN Reason: PAIN Hydralazine HCl (Hydralazine Inj 20 Mg/Ml Vial) 5 - 20 mg IVP Q20M PRN; Protocol PRN Reason: SBP >160 or DBP >110 Hydralazine HCl (Hydralazine Inj 20 Mg/Ml Vial) 10 mg IVP .ONCE PRN; Protocol PRN Reason: Step 9 of Labetalol protocol Stop: 08/30/20 09:05 Lactated Ringer's (Lr) 1,000 mls @ 100 mls/hr IV .Q10H YANNI Oxytocin/Sodium Chloride (Pitocin/Sodium Chloride) 500 mls @ 999 mls/hr IV PRN PRN; Protocol PRN Reason: POST- HEMORR PREVENTION Stop: 08/30/20 09:04 Tranexamic Acid (Tranexamic 1,000 Mg/100ml-Nacl) 1,000 mg in 100 mls @ 600 mls/hr IV .ONCE PRN PRN Reason: EBL >1200mL and within 3hr Stop: 08/30/20 09:04 Oxytocin/Sodium Chloride (Pitocin/Sodium Chloride) 500 mls @ 1 mls/hr IV TITR YANNI; Protocol Labetalol HCl (Labetalol 20 Mg/4 Ml Syringe) 20 - 80 mg IVP Q10M PRN; Protocol PRN Reason: SBP >160 or DBP >110 Labetalol HCl (Labetalol 20 Mg/4 Ml Syringe) 20 mg IVP .ONCE PRN; Protocol PRN Reason: Step 9 of nifedipine protocol Stop: 08/30/20 09:05 Labetalol HCl (Labetalol 20 Mg/4 Ml Syringe) 40 mg IVP .ONCE PRN; Protocol PRN Reason: Step 9 of hydrALAZine protocol Stop: 08/30/20 09:05 Lidocaine HCl (Lidocaine-Mpf 1% 30 Ml Vial) 30 ml ID .ONCE PRN PRN Reason: PERINEAL REPAIR Stop: 08/30/20 09:04 Methylergonovine Maleate (Methylergonovine 0.2 Mg/Ml Vial) 0.2 mg IM .ONCE PRN PRN Reason: Step 2: Hemorrhage protocol Stop: 08/30/20 09:04 Misoprostol (Misoprostol 200 Mcg Tablet) 800 mcg BC .ONCE PRN PRN Reason: Step 3: Hemorrhage protocol Stop: 08/30/20 09:04 Misoprostol (Misoprostol 100 Mcg Tablet) 50 mcg BC Q4HR [facility] Last Admin: 08/25/20 09:31 Dose: 50 mcg Documented by: Nifedipine (Nifedipine 10 Mg Capsule) 10 - 20 mg PO Q20M PRN; Protocol PRN Reason: SBP >160 or DBP >110 Ondansetron HCl (Ondansetron 4 Mg/2 Ml Vial) 4 mg IVP Q4HR PRN PRN Reason: Nausea / Vomiting Ondansetron HCl (Ondansetron Odt 4 Mg Tablet) 4 mg TL Q4HR PRN PRN Reason: Nausea / Vomiting Oxytocin (Oxytocin 10 Unit/Ml Vial) 10 unit IM .ONCE PRN PRN Reason: Step one: If no IV access Stop: 08/30/20 09:04 Sodium Chloride (Sodium Chloride Flush 0.9% 10 Ml Syringe) 10 ml IVP 0100,0900,1700 YANNI Sodium Chloride (Sodium Chloride Flush 0.9% 10 Ml Syringe) 10 ml IVP PRN PRN PRN Reason: NEEDED PER PROVIDER ORDERS PNV, claritin, Fe and ASA Allergies/Adverse Reactions: Allergies Allergy/AdvReac Type Severity Reaction Status Date / Time No Known Drug Allergies Allergy Verified 01/11/19 06:34 Anes History & Medical History - Anesthetic History Anesthesia Complications: reports: No previous complications - Medical History Cardiovascular: reports: None Pulmonary: reports: None Gastrointestinal: reports: None Urinary: reports: None Neuro: reports: None Musculoskeletal: reports: Scoliosis Endocrine/Autoimmune: reports: None Blood Disorders: reports: None Skin: reports: None Smoking Status: Never smoker Psychosocial: reports: No issues indicated History of Cancer?: No - Surgical History General: reports: Cholecystectomy - Obstetrical History : 4 Parity: 2 Events: reports: Other (di/di twins) Complications: reports: None Exam General: Alert, Oriented x3, Cooperative, No acute distress Dental: WNL Mouth Openin Fingerbreadth Neck Mobility: Normal Mallampati classification: I Thyromental Distance: 4-6 cm Mental/Cognitive Status: Alert/Oriented X3, Normal for patient Plan Anesthesia Type: General (If needed), Epidural Consent for Procedure(s) Verified and Reviewed: Yes Code Status: Attempt Resuscitation ASA classification: 2-Mild systemic disease Is this case an emergency?: No
[2020-08-25] MEDS ORDERED: SEVOFLURANE 250 ML LIQUID INH ONE (10:46)
[2020-08-25] MEDS: LACTATED RINGERS 1,000 ML IV SCH ×2 (13:42→19:52)
[2020-08-25] MEDS ORDERED: ROPIVACAINE 0.2% 200 MG/100 ML BAG EP ONE (16:17)
--- NOTE | 2020-08-25 16:21 | HISTORY & PHYSICAL EXAMINATION ---
Admit History - Visit Reason Visit Reason: Other (IOL) - : 4 Parity: 2 Complications This : positive: Multiple gestation Smoking Status: Never smoker - Mother's Labs Mother's Blood Type: positive: B Mother's RH: positive: Positive GBS: positive: Group B Step Negative Rubella Status: positive: Immune - Other Maternal History Other Maternal History: ID: Patient is a 29 yo at 37+5 wga with a did-di twin gestation. HPI: Patients presents for induction of labor. Twin A is in vertex presentation. Twin B has been in variable positions. Twin A is at 32%ile for EFW from most recent US with Twin B at 62%ile. There is a 10% discordance in weight. Patient has not been having contractions. No LOF or VB. Otherwise healthy. Offered CS vs IOL/vaginal delivery. Opting for IOL with understanding that Twin B may need emergent CS delivery. Consents obtained for both. No change in health hx since time of prior exam. No VB/LOF/CTX. Active FM. Past Medical History: Anxiety Disorder (history of) Past Surgical History: Cholecystectomy (2011) Family History: Mother: melanoma MGF: Melanoma PGF: prostate ca SOCIAL HX: Patient lives in [place] with and 2 children SAHM No BENNY FOB active duty HX: DATING: OLEGARIO 09/11/2019 by LMP. Initial U/S: 02/03/2020 completed by [facility] DI @ 8.3wks gestation is consistent with LMP dating. Di-DI twin -started 81mg ASA @ 13wks gestation -Baseline growth at 28 weeks and then Q 4weeks. Scheduled with MFM See below -NST and KEMI at 32 weeks -Appropriately grown with Twin B larger B pos/Rubella imm VZV:imm HIV neg/RPR NR/HepBsAg neg/HepC neg Genetic testing:cfDNA with MFM, at least one boy. Aneuploidy neg. MSAFP ordered last visit. Discussed limitations FAS: with MFM 16 week marker screen reassuring -EFW 59%ile and 40%ile, 6% discrepancy. 3VC x2, posterior and anterior placentas - CL 4.13, vertex/vertex with presenting twin on right. Both male 06/16 EFW 60% and EFW 47%ile (Twin B larger) 07/19 EFW 62Ile and 32%ile Glucola at 28 weeks- 136. Passed but reviewed limiting carbs CBC low on iron supplemetnation Influenza: 01/20/20 TDAP complete GBS collected today HSV: denies Breast pump Rx given MOD: Discussed VD vs CS and risks to twin B. Will discuss with partner and proceed accordingly pap: 02/10/2020 ALL: NKDA MEDS: ASA/PNV/Iron ROS: As per HPI, otherwise remaining systems are negative PE: VS: 137/55 78 100 98.2 GEN: NAD HEAD: NCAT EYES: No scleral icterus or conjunctival injection CV: RRR RESP: CTAB, normal effort ABD: gravid, S&NT/ND PSYCH: appropriate affect NEURO: alert and oriented, normal gait and coordination EXT: [facility] DEPARTMENTAL SECRETARY: NEFG SVE: 05/24/1//med Confirmed Twin A is vertex with BSUS TWIN A : EFM 145 mod chava 15x15 accels no decels TWIN B: EFM 150 mod chava 15x15 accels no decels TOCO: Intermittent and mild A/P: 29 yo at 37+5 wga and Tyson twin gestation here for IOL MOD: Counseled on RBA regarding IOL vs . Opting for IOL Consented for both processes given possibiliy of CS even in the event of vaginal delivery of twin A. Reviewed risks/benefits/alternatives to Risks include, but are not limited to, bleeding, infection, damage to neatby tissue and organs. On average, EBL of up to 1 liter is considered within normal limits for CS. Risks of blood transfusion include infection Risk of HIV 1/2million nationwide Risk of Hepatitis 1/1 million Risks of transfusion reaction Infection risk moderate given clean/contaminated nature of procedure and IV antibiotics will be given. Damage to nearby tissue and organs including bladder, bowel, ureters, blood vessels, nerves, and fetus Damage may be noted intra-op and may be delayed until after the procedure is complete Reviewed management of complications and efforts to avoid such outcomes but reviewed that they may occur despite our best efforts Written informed consent obtained. IOL: Marginally favorable -Cervical ripening with miso 50 mcg BC x1 and then proceed with pitocin -AROM when OR team available FWB: Twin A vertex/Twin B variable. -Cat I tracing x2 -GBS neg -CEFM -Well grown with 10% discrepancy with B larger PPH: moderate to high risk -T&C for 2 units -Uterotonics readily available In-patient care with start of pitocin or ROM. Meds/Allgy - Allergies Allergies/Adverse Reactions: Allergies Allergy/AdvReac Type Severity Reaction Status Date / Time No Known Drug Allergies Allergy Verified 01/11/19 06:34 Physical - Abdominal Exam Vital Signs: Temp Pulse Resp BP Pulse Ox 98.2 F 08/25/20 07:50
[2020-08-25] MEDS ORDERED: NALBUPHINE 10 MG/ML AMP IVP PRN (16:46)
[2020-08-25] MEDS ORDERED: ePHEDrine 50 MG/ML VIAL IVP PRN (16:46)
[2020-08-25] MEDS ORDERED: ROPIVACAINE 0.2% 200 MG/100 ML BAG EP PRN (16:46)
[2020-08-25] MEDS ORDERED: NALOXONE 0.4 MG/ML VIAL IVP PRN (16:46)
[2020-08-25] MEDS ORDERED: SODIUM CHLORIDE FLUSH 0.9% 10 ML SYRINGE IVP SCH (17:00)
--- NOTE | 2020-08-25 17:29 | PROVIDER PROGRESS NOTE ---
Subjective - Prog Note Date Prog Note Date: 08/25/20 Prog Note Time: 16:00 - Subjective Subjective: Patient is doing well. Rates pain 4/10. Pitocin at 7 mU/min. No LOF or VB Cat I tracing for both Twin A and B SVE /-2/mid/med Reviewed positioning of OR with team. Will obtain epidural Will plan for AROM once OR is cleared for delivery. Objective - Vital Signs/Intake & Output Intake & Output: Intake & Output 08/22/20 08/23/20 08/24/20 08/25/20 23:59 23:59 23:59 23:59 Intake Total 1015.500 Balance 1015.500 - Lab Results Fish Bones: 08/25/20 08:23 Other Labs: Lab Results x24hrs 08/25/20 08/25/20 Range/Units 08:23 08:23 WBC 8.6 (4.8-10.8) x10^3/uL RBC 4.03 L (4.20-5.40) 10^6/uL Hgb 12.2 (12.0-16.0) g/dL Hct 36.4 L (37.0-47.0) % MCV 90.3 (81.0-99.0) fL MCH 30.3 (27.0-31.0) pg MCHC 33.5 (32.0-36.0) g/dL RDW 15.7 H (12.0-15.0) % Plt Count 184 (130-450) 10^3/uL MPV 10.0 (7.9-10.8) fL Neut # (Auto) 6.3 (1.5-6.6) 10^3/uL Lymph # (Auto) 1.3 L (1.5-3.5) 10^3/uL [place] # (Auto) 0.7 (0.0-1.0) 10^3/uL Eos # (Auto) 0.2 (0.0-0.7) 10^3/uL Baso # (Auto) 0.0 (0.0-0.1) 10^3/uL Absolute Nucleated RBC 0.00 x10^3/uL Nucleated RBC % 0.0 /100WBC Blood Type B POSITIVE Antibody Screen NEGATIVE Crossmatch IS Only See Detail
--- NOTE | 2020-08-25 18:53 | PROVIDER PROGRESS NOTE ---
Subjective - Prog Note Date Prog Note Date: 08/25/20 Prog Note Time: 18:38 - Subjective Subjective: Pitocin at 12 mU/min Patient with rigors- afebrile Comfortable with epidural AROM for clear fluid SVE unchanged at /-2 Cat I tracing for Twin A and Twin B Objective - Vital Signs/Intake & Output Intake & Output: Intake & Output 08/22/20 08/23/20 08/24/20 08/25/20 23:59 23:59 23:59 23:59 Intake Total 1032.783 Balance 1032.783 - Lab Results Fish Bones: 08/25/20 08:23 Other Labs: Lab Results x24hrs 08/25/20 08/25/20 Range/Units 08:23 08:23 WBC 8.6 (4.8-10.8) x10^3/uL RBC 4.03 L (4.20-5.40) 10^6/uL Hgb 12.2 (12.0-16.0) g/dL Hct 36.4 L (37.0-47.0) % MCV 90.3 (81.0-99.0) fL MCH 30.3 (27.0-31.0) pg MCHC 33.5 (32.0-36.0) g/dL RDW 15.7 H (12.0-15.0) % Plt Count 184 (130-450) 10^3/uL MPV 10.0 (7.9-10.8) fL Neut # (Auto) 6.3 (1.5-6.6) 10^3/uL Lymph # (Auto) 1.3 L (1.5-3.5) 10^3/uL [place] # (Auto) 0.7 (0.0-1.0) 10^3/uL Eos # (Auto) 0.2 (0.0-0.7) 10^3/uL Baso # (Auto) 0.0 (0.0-0.1) 10^3/uL Absolute Nucleated RBC 0.00 x10^3/uL Nucleated RBC % 0.0 /100WBC Blood Type B POSITIVE Antibody Screen NEGATIVE Crossmatch IS Only See Detail
[2020-08-25] MEDS ORDERED: METHYLERGONOVINE 0.2 MG/ML VIAL ONE (20:04)
[2020-08-25] MEDS ORDERED: CARBOPROST TROMETHAMINE 250 MCG/ML AMP IM ONE (20:04)
[2020-08-25] MEDS ORDERED: miSOPROStoL 200 MCG TABLET ONE (20:04)
[2020-08-25] MEDS: OXYTOCIN/SODIUM CHLORIDE 500 ML IV PRN ×2 (20:55→21:30)
[2020-08-25] MEDS ORDERED: SIMETHICONE CHEW 80 MG TABLET PO PRN (22:22)
--- NOTE | 2020-08-25 22:27 | DELIVERY NOTE ---
Delivery Note - Labor Labor: positive: Induced by oxytocin - Infant Delivery Method Delivery Method: positive: Spontaneous vaginal delivery, Vacuum assist - Cervical Ripening Method Cervical Ripening Method: positive: Misoprostil - Presentation Presentation: positive: Vertex - Nuchal Cord Nuchal Cord: positive: None - Anesthetic Anesthetic Type: - Amniotic Fluid Description Amniotic Fluid Description: positive: Clear - Vacuum Use Indication for Vacuum Use: positive: Suspicion of immediate or potential compromise Type of Vacuum Cup: positive: Cup: Rigid Vacuum Extraction: positive: Successful Number of pop-offs: 0 - Episiotomy Type Episiotomy Type: positive: None - Laceration Laceration: positive: None - Delivery Outcome Delivery Outcome: positive: Livebirth - : positive: Placed in direct skin contact with mother Lincoln sex: positive: Male - Cord Cord: positive: 3 vessels, True knot - Placenta Placenta: positive: Intact, Expressed - Estimated Blood Loss Estimated Blood Loss (in cc): 200 - Post Delivery Events Post Delivery Events: positive: No post delivery events - Delivery Comments (Free Text/Narrative) Delivery Comments (Free Text/Narrative): STAGE I: Patient is a 29 yo at 37+5 wga with a di-di twin gestation here for induction of labor. Patient is up and ambulating, tolerating po, and voiding. Pain is well managed with pain medications. Initial SVE was 3/-2 station. Patient was given misoprostol 50 mcg BC x1. She was then started on pitocin, reaching a max dose of 12 mU/min. She underwent artificial rupture of membranes of the presenting twin, notable for passage of clear fluid. GBS negative, antibiotic prophylaxis was not indicated. Patient underwent artificial rupture of membranes of Twin A at 18:49, clear fluid. Complete cervical dilation at 19:46. Patient was transferred ot the OR at 19:59. Cat I tracing for both Twin A and Twin B throughout Stage I labor. STAGE II: Twin A: Patient was noted to be compete at 19:46. Transfer to the OR at 19:59. Labored down while assembling OR team. Patient pushed over two contractions to deliver a viable male at 21:31. Infant delivered from ANA presentation with left shoulder anterior, without difficulty. Bandolier cord easily reduced. Delivered to maternal chest. Cord was clamped x2 and cut after cessation of pulsations. Apgars were 8/9 with weight 3140g. Twin B was then noted to be vertex by bedside us. Patient labored down until head was well applied to cervix. Patient underwent AROM at 20:50 following an examination to ensure there absence of occult cord. Fluid was clear. Cervix was soft and floppy and at full dilation. While continuing to labor down, a large and engorged segment of umbilcal cord comprised of a true knot prolapsed into the vagina. The decision was made to proceed with an attempt at vacuum delivery while preparing for . Kiwi rigid cup vacuum was applied and delivered over the cord at 20:54. was placed on mother's chest, cord was clamped x2 and cut immediately, and was handed off to the awaiting pediatric team. Vacuum was applied for less than 30 seconds and there were not pop-offs. Twin B had Apgars of 7/8 and weight of 3033g. Cord gases were collected, results pending. STAGE III: Placentas delivered together with manual expression at 2102. They were examined and found to be intact. There was an isolated succenturiate lobe detached from either placenta and present between the two placentas. Both placentas were sent together to pathology. Perineum was examined and was intact. EBL 200 mL. Procedure was well tolerated.
[2020-08-25] MEDS ORDERED: LACTATED RINGERS 1,000 ML IV SCH (23:00)
[2020-08-26] MEDS: DOCUSATE SODIUM 100 MG CAPSULE PO PRN ×2 (00:01→17:58)
[2020-08-26] MEDS: IBUPROFEN 600 MG TABLET PO PRN ×4 (00:01→17:58)
[2020-08-26] MEDS: ACETAMINOPHEN 500 MG TABLET PO PRN ×3 (01:41→17:57)
--- NOTE | 2020-08-26 10:23 | PROVIDER PROGRESS NOTE ---
Subjective - Prog Note Date Prog Note Date: 08/26/20 Prog Note Time: 10:21 - Subjective Subjective: Patient is doing well. Up and ambulating. Tolerating po. Pain well managed with ibuprofen. Minimal lochia. Babies doing well but will spend the night. Objective - Vital Signs/Intake & Output Reviewed Vital Signs: Yes Vital Signs: Vital Signs x48h Temp Pulse Resp BP Pulse Ox 08/26/20 09:03 97.7 F 08/26/20 08:10 69 20 112/64 98 08/26/20 06:37 98.6 F 67 18 125/69 100 08/26/20 02:39 98.2 F 64 17 112/63 100 Intake & Output: Intake & Output 08/23/20 08/24/20 08/25/20 08/26/20 23:59 23:59 23:59 23:59 Intake Total 1926.180 825 Output Total 400 360 Balance 1526.180 465 - Objective General Appearance: positive: No acute distress Respiratory: positive: No respiratory distress, Breath sounds nml Cardiovascular: positive: Regular rate & rhythm Abdomen: positive: Non-tender, Other (S&NT/ND. FF below umbi) Skin: positive: Color nml, Warm, Dry Extremities: positive: Non-tender, Other (mild BLE edema) Neurologic/Psychiatric: positive: Oriented x3 - Lab Results Fish Bones: 08/25/20 08:23 Assessment/Plan - Problem List (1) Twin delivered vaginally Impression: PPD#1 s/p and VAVD of twins Doing well Routine pp care Anticipate DC home tomorrow Declines DC meds
[2020-08-27] MEDS: IBUPROFEN 600 MG TABLET PO PRN ×2 (03:56→10:09)
[2020-08-27] MEDS: ACETAMINOPHEN 500 MG TABLET PO PRN (03:56)
[2020-08-27 10:09] VITALS: BP 90/66
[2020-08-27] MEDS: DOCUSATE SODIUM 100 MG CAPSULE PO PRN (10:09)
--- NOTE | 2020-08-27 10:42 | Discharge Plan ---
Discharge Plan Problem Reviewed?: Yes Disposition: Home, Self Care Condition: Good Diet: Regular Activity Restrictions: Additional Comments (Nothing in the vagina for 6 weeks: No intercourse, tampons, douching Call for: -Fever greater than 100.5 - Pain that does not improve with pain medication -Heavy bleeding in which you are soaking a pad an hour for 2 hours in a row No tub baths or hot tubs for 4 weeks) Shower Restrictions: Yes (NO tub baths or hot tubs for 4 weeks) Driving Restrictions: No Additional Instructions or Follow Up instructions: Ibuprofen 600 mg by mouth every 6 hours as needed for pain Acetaminophen 500-1000 mg by mouth every 8 hours as needed for pain Docusate 100-200 mg by mouth twice a day as needed for constipation No Smoking: If you smoke, Please STOP! Call for help. Follow-up with: Augustina Orta MD [Provider Admit Priv/Credential] -
--- NOTE | 2020-08-27 10:44 | PROVIDER PROGRESS NOTE ---
Subjective - Prog Note Date Prog Note Date: 08/27/20 Prog Note Time: 11:03 - Subjective Subjective: Patient is up and ambulating, tolerating po, and voiding. Pain is well managed with pain medications. Objective - Vital Signs/Intake & Output Reviewed Vital Signs: Yes Vital Signs: Vital Signs x48h Temp Pulse Resp BP Pulse Ox 08/27/20 10:00 97.9 F 77 16 90/66 100 08/27/20 08:14 97.7 F 54 L 16 111/62 100 08/27/20 03:59 97.7 F 64 16 113/66 Intake & Output: Intake & Output 08/24/20 08/25/20 08/26/20 08/27/20 23:59 23:59 23:59 23:59 Intake Total 1926.180 825 Output Total 400 360 Balance 1526.180 465 - Objective General Appearance: positive: No acute distress Respiratory: positive: Chest non-tender, No respiratory distress Cardiovascular: positive: Regular rate & rhythm Abdomen: positive: Other (S&NT/ND. FF below umbi) Skin: positive: Color nml, Warm, Dry Extremities: positive: Non-tender Neurologic/Psychiatric: positive: Oriented x3 - Lab Results Fish Bones: 08/25/20 08:23 Other Labs: Lab Results x24hrs 08/25/20 Range/Units 08:23 Crossmatch IS Only See Detail Assessment/Plan - Problem List (1) Twin delivered vaginally Impression: PPD#2 s/p and VAVD of twin gestation Meeting goals for discharge DC to home Routine DC instructions given
--- NOTE | 2020-08-30 06:41 | DISCHARGE SUMMARY ---
"Discharge Summary Discharge Date: 08/25/20 Discharging Provider: You Condition at Discharge: Good Discharge Disposition: Home, Self Care - DIAGNOSES Admission Diagnoses: Di Di twin gestation at 37+5 wga Discharge Diagnoses with Status of Each Condition: Same and delivery of term gestation - HPI History of Present Illness: Patient is a 29 yo at 37+5 wga with a did-di twin gestation who presented for induction of labor. Twin A is in vertex presentation. Twin B has been in variable positions. Twin A is at 32%ile for EFW from most recent US with Twin B at 62%ile. There is a 10% discordance in weight. Patient has not been having contractions. No LOF or VB. Otherwise healthy. Offered CS vs IOL/vaginal delivery. Opting for IOL with understanding that Twin B may need emergent CS delivery. Consents obtained for both. No change in health hx since time of prior exam. - CONSULTS | PROCEDURES Procedures: Spontaneous vaginal delivery of twin A and vacuum assisted vaginal delivery of twin B. - HOSPITAL COURSE Hospital Course: STAGE I: Patient is a 29 yo at 37+5 wga with a di-di twin gestation admitted for induction of labor. Patient is up and ambulating, tolerating po, and voiding. Pain is well managed with pain medications. Initial SVE was 3/-2 station. Patient was given misoprostol 50 mcg BC x1. She was then started on pitocin, reaching a max dose of 12 mU/min. She underwent artificial rupture of membranes of the presenting twin, notable for passage of clear fluid. GBS negative, antibiotic prophylaxis was not indicated. Patient underwent artificial rupture of membranes of Twin A at 18:49, clear fluid. Complete cervical dilation at 19: 46. Patient was transferred ot the OR at 19:59. Cat I tracing for both Twin A and Twin B throughout Stage I labor. STAGE II: Twin A: Patient was noted to be compete at 19:46. Transfer to the OR at 19:59. Labored down while assembling OR team. Patient pushed over two contractions to deliver a viable male infant at 21:31. Infant delivered from ANA presentation with left shoulder anterior, without difficulty. Bandolier cord easily reduced. Delivered to maternal chest. Cord was clamped x2 and cut after cessation of pulsations. Apgars were 8/9 with weight 3140g. Twin B was then noted to be vertex by bedside us. Patient labored down until head was well applied to cervix. Patient underwent AROM at 20:50 following an examination to ensure there absence of occult cord. Fluid was clear. Cervix was soft and floppy and at full dilation. While continuing to labor down, a large and engorged segment of umbilcal cord comprised of a true knot prolapsed into the vagina. The decision was made to proceed with an attempt at vacuum delivery while preparing for . Kiwi rigid cup vacuum was applied and delivered over the cord at 20:54. was placed on mother's chest, cord was clamped x2 and cut immediately, and was handed off to the awaiting pediatric team. Vacuum was applied for less than 30 seconds and there were not pop-offs. Twin B had Apgars of 7/8 and weight of 3033g. Cord gases were collected, results pending. STAGE III: Placentas delivered together with manual expression at 2102. They were examined and found to be intact. There was an isolated succenturiate lobe detached from either placenta and present between the two placentas. Both placentas were sent together to pathology. Perineum was examined and was intact. EBL 200 mL. Procedure was well tolerated. Post course was uncomplicated. Patient was meeting goals for discharge in the morning of day #2. Routine discharge instructions were given. - ALLERGIES Allergies/Adverse Reactions: Allergies Allergy/AdvReac Type Severity Reaction Status Date / Time No Known Drug Allergies Allergy Verified 08/25/20 22:14 - LABS Result Diagrams: 08/25/20 08:23 - FOLLOW UP Follow Up: [address] Orta - TIME SPENT Time Spent in Discharge (Minutes): 30"
== END 2020-08-27 13:10 | disposition home or self-care (01) | DRG 807 ==
LOC: WFO 07:30 → FBP 07:32 → WFO 09:02 → FBP 09:03 → INTOOBSV 14:05 → OBSVTOIN 14:05
PROVIDERS: ADMIT Obstetrics & Gynecology; ATTEND Obstetrics & Gynecology
PROC: 10D07Z6 Extraction of Products of Conception, Vacuum, Via Natural or Artificial Opening (ICD-10-PCS; 2020-08-25)
PROC: 10E0XZZ Delivery of Products of Conception, External Approach (ICD-10-PCS; 2020-08-25)
PROC: 3E033VJ Introduction of Other Hormone into Peripheral Vein, Percutaneous Approach (ICD-10-PCS; 2020-08-25)
PROC: 3E0DXGC Introduction of Other Therapeutic Substance into Mouth and Pharynx, External Approach (ICD-10-PCS; 2020-08-25)
PROC: 10907ZC Drainage of Amniotic Fluid, Therapeutic from Products of Conception, Via Natural or Artificial Opening (ICD-10-PCS; principal; 2020-08-25 13:00)
DX: O69.2XX1 Labor and delivery complicated by other cord entanglement, with compression, fetus 1 (principal); Z37.2 Twins, both liveborn; O69.0XX2 Labor and delivery complicated by prolapse of cord, fetus 2; O30.043 Twin pregnancy, dichorionic/diamniotic, third trimester; Z3A.37 37 weeks gestation of pregnancy
CPT/HCPCS: 36415; 85025; 86850; 86900; 86901; 86920; 96365; A9270; J3490; J7120

== ENCOUNTER 2020-09-02 11:24 | Inpatient (IN) | payer OTHER ==
[2020-09-02 12:04] LABS: BASOPHILS # (AUTO) 0.1 10^3/uL (0.0-0.1); BASOPHILS % (AUTO) 0.9 %; EOSINOPHILS # (AUTO) 0.2 10^3/uL (0.0-0.7); EOSINOPHILS % (AUTO) 3.2 %; HCT - HEMATOCRIT 43.1 % (37.0-47.0); HGB - HEMOGLOBIN 14.3 g/dL (12.0-16.0); LYMPHOCYTES # (AUTO) 1.5 10^3/uL (1.5-3.5); LYMPHOCYTES % (AUTO) 23.2 %; MEAN CORPUSCULAR HEMOGLOBIN 30.2 pg (27.0-31.0); MEAN CORPUSCULAR HGB CONC 33.2 g/dL (32.0-36.0); MEAN CORPUSCULAR VOLUME 90.9 fL (81.0-99.0); MEAN PLATELET VOLUME 9.4 fL (7.9-10.8); MONOCYTES # (AUTO) 0.6 10^3/uL (0.0-1.0); MONOCYTES % (AUTO) 8.5 %; NEUTROPHILS # (AUTO) 4.2 10^3/uL (1.5-6.6); NEUTROPHILS % (AUTO) 63.4 %; PLT - PLATELET COUNT 219 10^3/uL (130-450); RED BLOOD COUNT 4.74 10^6/uL (4.20-5.40); RED CELL DISTRIBUTION WIDTH 14.5 % (12.0-15.0); WHITE BLOOD COUNT 6.6 x10^3/uL (4.8-10.8)
[2020-09-02 12:20] LABS: ALBUMIN 3.6 g/dL (3.2-5.5); ALBUMIN/GLOBULIN RATIO 1.3 (1.0-2.2); BILIRUBIN,TOTAL 0.6 mg/dL (0.2-1.0); CALCIUM 9.3 mg/dL (8.5-10.3); CREATININE 0.6 mg/dL (0.4-1.0); POTASSIUM 4.1 mmol/L (3.5-5.0); TOTAL PROTEIN 6.4 g/dL (6.7-8.2)
[2020-09-02 13:01] LABS: PROTEIN/CREATININE RATIO,URINE 0.5 (<=0.2)
[2020-09-02] MEDS ORDERED: LABETALOL 100 MG TABLET PO ONE (15:04)
[2020-09-02] MEDS ORDERED: NIFEdipine 10 MG CAPSULE PO PRN (16:41)
[2020-09-02] MEDS ORDERED: LABETALOL 20 MG/4 ML SYRINGE IVP PRN ×2 (16:46)
[2020-09-02] MEDS ORDERED: hydrALAZINE INJ 20 MG/ML VIAL IVP PRN ×2 (16:46)
[2020-09-02] MEDS ORDERED: MAGNESIUM SULFATE 4 GRAM 4 GM/50 ML BAG IV ONE (16:46)
[2020-09-02] MEDS ORDERED: SODIUM CHLORIDE FLUSH 0.9% 10 ML SYRINGE IVP PRN (16:46)
[2020-09-02] MEDS: ACETAMINOPHEN 325 MG TABLET PO SCH ×2 (18:33→23:23)
[2020-09-02] MEDS: MAGNESIUM SULFATE IN WATER 20 GM/500 ML IV.SOLN IV SCH (18:33)
[2020-09-02] MEDS: LACTATED RINGERS 1,000 ML IV SCH (18:34)
--- NOTE | 2020-09-02 19:13 | HISTORY & PHYSICAL EXAMINATION ---
Admit History - Visit Reason Visit Reason: Other ( pre-eclampsia) - Smoking Status: Never smoker - Other Maternal History Other Maternal History: Patient is a 29 yo admitted 1 week for preeclampsia with severe features. Patient delivered a twin gestation via and VAVD on 08/25/20. Her and perpartum course had been generally uncomplicated. She presented for her one week follow-up appointment and reported a headache tht woke her from sleep. Blood pressures were initially 140s/80 and then were repeated and were in the 150s/90s. She was sent to triage for evaluation. A random P:C was 0.5, although it was not a catheterized specimen. She had one SBP in the 160s followed with several in mild range. Agter a couple of hours of observation, SBPs were consistently 160 to 170. She was given nifedipine 10 mg po x1 with good response. Headache had been mild with significant neck pain at the occiput. Head/neck pain also noted to resolve with lowering of blood pressures. Denies vision change or RUQ pain. Admitted for seizure prophylaxis and management of severe range pressures. Past Medical History: Anxiety Disorder (history of) Past Surgical History: Cholecystectomy (2011) Family History: Mother: melanoma MGF: Melanoma PGF: prostate ca SOCIAL HX: Patient lives in [place] with and 2 children SAHM No BENNY FOB active duty ROS: As per HPI, otherwise remaining systems are negative. PE: VS: 161/93 97.5 64 20 98 GEN: NAD HEENT: NCAT CV: RRR RESP: CTAB ABD: S&NT, FF below umbi. No RUQ TTP EXT: mild BLE edema, improved since time of delivery NEURO: A&O, no photophobia PSYCH: appropriate affect CBC and CMP wnl P:C 0.5 A/P 29 yo now 1 week s/p and VAVD of twin gestation admitted with pre-eclampsia with severe features PRE-ECLAMPSIA: -P:C 0.5 but not catheterized sample. Since proteinuria will not change care plan, opted to avoid catheter placement Will observe UOP with calibrated hat placed in toielt -Responded well to oral nifedipine 10 mg po x1 Avoid labetalol given baseline borderline bradycardia. OK to use if HR> 65 Strong response to nifedipine, may be preferred to hydralazine given predisposition to hypotension with hydralazine. Reasonable to use hydralazine as IV medication of choice. -Starting magnesium 4 g bolus with 2g/hr infusion Check mag level with onset of symptoms/poor tolerance -Initial CMP and CBC wnl. Will repeat labs at 6 hours. In patient care for 24 hours of magnesium and likely 24 hours of observation to follow. Meds/Allgy - Allergies Allergies/Adverse Reactions: Allergies Allergy/AdvReac Type Severity Reaction Status Date / Time No Known Drug Allergies Allergy Verified 08/25/20 22:14 Physical - Abdominal Exam Vital Signs: Temp Pulse Resp BP Pulse Ox 97.5 F L 64 20 113/77 98 09/02/20 11:35 09/02/20 11:35 09/02/20 11:35 09/02/20 17:45 09/02/20 11:35
[2020-09-02 19:41] LABS: BASOPHILS % (AUTO) 0.5 %; EOSINOPHILS # (AUTO) 0.1 10^3/uL (0.0-0.7); EOSINOPHILS % (AUTO) 1.7 %; HCT - HEMATOCRIT 43.4 % (37.0-47.0); HGB - HEMOGLOBIN 14.6 g/dL (12.0-16.0); LYMPHOCYTES # (AUTO) 1.6 10^3/uL (1.5-3.5); LYMPHOCYTES % (AUTO) 19.3 %; MEAN CORPUSCULAR HGB CONC 33.6 g/dL (32.0-36.0); MEAN CORPUSCULAR VOLUME 89.1 fL (81.0-99.0); MEAN PLATELET VOLUME 9.2 fL (7.9-10.8); MONOCYTES # (AUTO) 0.6 10^3/uL (0.0-1.0); MONOCYTES % (AUTO) 7.4 %; NEUTROPHILS # (AUTO) 5.8 10^3/uL (1.5-6.6); NEUTROPHILS % (AUTO) 70.6 %; PLT - PLATELET COUNT 247 10^3/uL (130-450); RED BLOOD COUNT 4.87 10^6/uL (4.20-5.40); RED CELL DISTRIBUTION WIDTH 14.4 % (12.0-15.0); WHITE BLOOD COUNT 8.2 x10^3/uL (4.8-10.8)
[2020-09-02 19:53] LABS: ALBUMIN 3.7 g/dL (3.2-5.5); ALBUMIN/GLOBULIN RATIO 1.4 (1.0-2.2); BILIRUBIN,TOTAL 0.8 mg/dL (0.2-1.0); CALCIUM 8.7 mg/dL (8.5-10.3); CREATININE 0.4 mg/dL (0.4-1.0); POTASSIUM 3.6 mmol/L (3.5-5.0); TOTAL PROTEIN 6.4 g/dL (6.7-8.2)
[2020-09-03] MEDS: MAGNESIUM SULFATE IN WATER 20 GM/500 ML IV.SOLN IV SCH ×2 (04:18→12:38)
[2020-09-03] MEDS: LACTATED RINGERS 1,000 ML IV SCH (04:20)
[2020-09-03] MEDS: PRENATAL VITAMIN TABLET PO SCH (08:13)
[2020-09-03] MEDS: ACETAMINOPHEN 325 MG TABLET PO SCH ×3 (08:13→21:05)
[2020-09-03] MEDS: LORATADINE 10 MG TABLET PO SCH (08:13)
[2020-09-03] MEDS: SODIUM CHLORIDE FLUSH 0.9% 10 ML SYRINGE IVP SCH ×2 (12:39→16:15)
[2020-09-03 13:33] LABS: BASOPHILS % (AUTO) 0.6 %; EOSINOPHILS # (AUTO) 0.2 10^3/uL (0.0-0.7); HCT - HEMATOCRIT 44.7 % (37.0-47.0); LYMPHOCYTES # (AUTO) 1.5 10^3/uL (1.5-3.5); LYMPHOCYTES % (AUTO) 23.1 %; MEAN CORPUSCULAR HEMOGLOBIN 30.3 pg (27.0-31.0); MEAN CORPUSCULAR HGB CONC 33.6 g/dL (32.0-36.0); MEAN CORPUSCULAR VOLUME 90.3 fL (81.0-99.0); MEAN PLATELET VOLUME 9.1 fL (7.9-10.8); MONOCYTES # (AUTO) 0.6 10^3/uL (0.0-1.0); MONOCYTES % (AUTO) 9.2 %; NEUTROPHILS % (AUTO) 63.8 %; PLT - PLATELET COUNT 255 10^3/uL (130-450); RED BLOOD COUNT 4.95 10^6/uL (4.20-5.40); RED CELL DISTRIBUTION WIDTH 14.6 % (12.0-15.0); WHITE BLOOD COUNT 6.3 x10^3/uL (4.8-10.8)
[2020-09-03 13:44] LABS: ALBUMIN 3.5 g/dL (3.2-5.5); ALBUMIN/GLOBULIN RATIO 1.3 (1.0-2.2); BILIRUBIN,TOTAL 0.6 mg/dL (0.2-1.0); CALCIUM 7.5 mg/dL (8.5-10.3); CREATININE 0.6 mg/dL (0.4-1.0); POTASSIUM 3.9 mmol/L (3.5-5.0); TOTAL PROTEIN 6.3 g/dL (6.7-8.2)
--- NOTE | 2020-09-03 14:19 | PROVIDER PROGRESS NOTE ---
Subjective - Prog Note Date Prog Note Date: 09/03/20 Prog Note Time: 14:04 - Subjective Subjective: Blood pressures were normal overnight but are trending up into mild range this am. Mild SYKES. No vision change. Diuresing with more than 1300 cc per void. PIH labs were unchanged from yesterday's assessments. Objective - Vital Signs/Intake & Output Reviewed Vital Signs: Yes Vital Signs: Vital Signs x48h Temp Pulse Resp BP BP Pulse Ox 09/03/20 13:58 98.1 F 91 18 136/78 H 99 09/03/20 12:05 98.4 F 69 16 136/96 H 99 09/03/20 10:00 97.9 F 94 18 139/87 H 98 09/03/20 09:56 97.9 F 94 16 139/74 H 98 09/03/20 08:00 98.6 F 92 18 123/77 96 09/03/20 06:34 86 16 96 Intake & Output: Intake & Output 08/31/20 09/01/20 09/02/20 09/03/20 23:59 23:59 23:59 23:59 Intake Total 7413.309 8647.167 Output Total 1100 4700 Balance 955.038 2236.167 - Objective General Appearance: positive: No acute distress Respiratory: positive: Chest non-tender, No respiratory distress, Breath sounds nml Cardiovascular: positive: Regular rate & rhythm Abdomen: positive: Non-tender, No distention, Other (No RUQ TTP) Skin: positive: Color nml, Dry Extremities: positive: Non-tender, Other (Decreased pedal edema from prior exam) Neurologic/Psychiatric: positive: Oriented x3, Other (brisk DTRs) Reflexes: Knee (R): 2+, Knee (L): 2+ - Lab Results Fish Bones: 09/03/20 13:26 09/03/20 13:26 Other Labs: Lab Results x24hrs 09/03/20 09/03/20 09/02/20 Range/Units 13:26 13:26 19:34 WBC 6.3 (4.8-10.8) x10^3/uL RBC 4.95 (4.20-5.40) 10^6/uL Hgb 15.0 (12.0-16.0) g/dL Hct 44.7 (37.0-47.0) % MCV 90.3 (81.0-99.0) fL MCH 30.3 (27.0-31.0) pg MCHC 33.6 (32.0-36.0) g/dL RDW 14.6 (12.0-15.0) % Plt Count 255 (130-450) 10^3/uL MPV 9.1 (7.9-10.8) fL Neut # (Auto) 4.0 (1.5-6.6) 10^3/uL Lymph # (Auto) 1.5 (1.5-3.5) 10^3/uL [place] # (Auto) 0.6 (0.0-1.0) 10^3/uL Eos # (Auto) 0.2 (0.0-0.7) 10^3/uL Baso # (Auto) 0.0 (0.0-0.1) 10^3/uL Absolute Nucleated RBC 0.00 x10^3/uL Nucleated RBC % 0.0 /100WBC Sodium 139 138 (135-145) mmol/L Potassium 3.9 3.6 (3.5-5.0) mmol/L Chloride 101 102 (101-111) mmol/L Carbon Dioxide 27 25 (21-32) mmol/L Anion Gap 11.0 11.0 (6-13) BUN 10 14 (6-20) mg/dL Creatinine 0.6 0.4 (0.4-1.0) mg/dL Estimated GFR (MDRD) 117 187 (>89) Glucose 101 H 101 H (70-100) mg/dL Calcium 7.5 L 8.7 (8.5-10.3) mg/dL Total Bilirubin 0.6 0.8 (0.2-1.0) mg/dL AST 23 23 (10-42) IU/L ALT 38 41 (10-60) IU/L Alkaline Phosphatase 128 H 126 H (42-121) IU/L Total Protein 6.3 L 6.4 L (6.7-8.2) g/dL Albumin 3.5 3.7 (3.2-5.5) g/dL Globulin 2.8 2.7 (2.1-4.2) g/dL Albumin/Globulin Ratio 1.3 1.4 (1.0-2.2) 07/09/21 Range/Units 19:34 WBC 8.2 (4.8-10.8) x10^3/uL RBC 4.87 (4.20-5.40) 10^6/uL Hgb 14.6 (12.0-16.0) g/dL Hct 43.4 (37.0-47.0) % MCV 89.1 (81.0-99.0) fL MCH 30.0 (27.0-31.0) pg MCHC 33.6 (32.0-36.0) g/dL RDW 14.4 (12.0-15.0) % Plt Count 247 (130-450) 10^3/uL MPV 9.2 (7.9-10.8) fL Neut # (Auto) 5.8 (1.5-6.6) 10^3/uL Lymph # (Auto) 1.6 (1.5-3.5) 10^3/uL [place] # (Auto) 0.6 (0.0-1.0) 10^3/uL Eos # (Auto) 0.1 (0.0-0.7) 10^3/uL Baso # (Auto) 0.0 (0.0-0.1) 10^3/uL Absolute Nucleated RBC 0.00 x10^3/uL Nucleated RBC % 0.0 /100WBC Sodium (135-145) mmol/L Potassium (3.5-5.0) mmol/L Chloride (101-111) mmol/L Carbon Dioxide (21-32) mmol/L Anion Gap (6-13) BUN (6-20) mg/dL Creatinine (0.4-1.0) mg/dL Estimated GFR (MDRD) (>89) Glucose (70-100) mg/dL Calcium (8.5-10.3) mg/dL Total Bilirubin (0.2-1.0) mg/dL AST (10-42) IU/L ALT (10-60) IU/L Alkaline Phosphatase (42-121) IU/L Total Protein (6.7-8.2) g/dL Albumin (3.2-5.5) g/dL Globulin (2.1-4.2) g/dL Albumin/Globulin Ratio (1.0-2.2) Assessment/Plan - Problem List (1) Pre-eclampsia affecting puerperium Impression: Has not needed antihypertensives since initial admit Labs stable BPs currently mild to normal range Excellent UOP -Will DC magnesium at 17:00 -Can discontinue quanitified UOP Will follow blood pressures off magnesium to determine plan for discharge
[2020-09-04] MEDS: PRENATAL VITAMIN TABLET PO SCH (08:02)
[2020-09-04] MEDS: SODIUM CHLORIDE FLUSH 0.9% 10 ML SYRINGE IVP SCH (08:02)
[2020-09-04] MEDS: LORATADINE 10 MG TABLET PO SCH (08:02)
[2020-09-04] MEDS: ACETAMINOPHEN 325 MG TABLET PO SCH (11:03)
[2020-09-04] MEDS: NIFEdipine ER 30 MG TABLET PO SCH (11:33)
--- NOTE | 2020-09-04 12:47 | PROVIDER PROGRESS NOTE ---
Subjective - Prog Note Date Prog Note Date: 09/04/20 Prog Note Time: 12:44 - Subjective Subjective: Patient is without symptoms of PIH. No SYKES or neck pain. No vision changes or RUQ pain. Blood pressures in 150s/90s overnight off magnesium. Isolated SBP of 170 this am with 140s on repeat. Starting nifedipine XL 30 mg. Heavy diuresis in the last 24 hours, no longer tracking output. Objective - Vital Signs/Intake & Output Reviewed Vital Signs: Yes Vital Signs: Vital Signs x48h Temp Pulse Resp BP Pulse Ox 09/04/20 11:23 142/90 H 09/04/20 11:05 62 16 140/84 H 100 09/04/20 08:12 98.4 F 65 16 149/94 H 100 Intake & Output: Intake & Output 09/01/20 09/02/20 09/03/20 09/04/20 23:59 23:59 23:59 23:59 Intake Total 3612.567 3632.167 Output Total 1100 4700 Balance 597.344 1609.167 - Objective General Appearance: positive: No acute distress Respiratory: positive: No respiratory distress, Breath sounds nml Cardiovascular: positive: Regular rate & rhythm Abdomen: positive: Non-tender, Other (No RUQ pain) Skin: positive: Color nml Extremities: positive: Non-tender, No pedal edema Neurologic/Psychiatric: positive: Oriented x3 - Lab Results Fish Bones: 09/03/20 13:26 09/03/20 13:26 Other Labs: Lab Results x24hrs 09/03/20 09/03/20 Range/Units 13:26 13:26 WBC 6.3 (4.8-10.8) x10^3/uL RBC 4.95 (4.20-5.40) 10^6/uL Hgb 15.0 (12.0-16.0) g/dL Hct 44.7 (37.0-47.0) % MCV 90.3 (81.0-99.0) fL MCH 30.3 (27.0-31.0) pg MCHC 33.6 (32.0-36.0) g/dL RDW 14.6 (12.0-15.0) % Plt Count 255 (130-450) 10^3/uL MPV 9.1 (7.9-10.8) fL Neut # (Auto) 4.0 (1.5-6.6) 10^3/uL Lymph # (Auto) 1.5 (1.5-3.5) 10^3/uL [place] # (Auto) 0.6 (0.0-1.0) 10^3/uL Eos # (Auto) 0.2 (0.0-0.7) 10^3/uL Baso # (Auto) 0.0 (0.0-0.1) 10^3/uL Absolute Nucleated RBC 0.00 x10^3/uL Nucleated RBC % 0.0 /100WBC Sodium 139 (135-145) mmol/L Potassium 3.9 (3.5-5.0) mmol/L Chloride 101 (101-111) mmol/L Carbon Dioxide 27 (21-32) mmol/L Anion Gap 11.0 (6-13) BUN 10 (6-20) mg/dL Creatinine 0.6 (0.4-1.0) mg/dL Estimated GFR (MDRD) 117 (>89) Glucose 101 H (70-100) mg/dL Calcium 7.5 L (8.5-10.3) mg/dL Total Bilirubin 0.6 (0.2-1.0) mg/dL AST 23 (10-42) IU/L ALT 38 (10-60) IU/L Alkaline Phosphatase 128 H (42-121) IU/L Total Protein 6.3 L (6.7-8.2) g/dL Albumin 3.5 (3.2-5.5) g/dL Globulin 2.8 (2.1-4.2) g/dL Albumin/Globulin Ratio 1.3 (1.0-2.2) Assessment/Plan - Problem List (1) Pre-eclampsia affecting puerperium Impression: has been off magnesium since 17:00 on 09/03/20 No PIH symptoms Labs have been normal throughout stay BPs running in high mild range Giving nifedipine XL 30 po this am If blood pressures are normal/mild range, can DC home at 17:00 Will have BP check this week in clinic Has BP cuff at home and will check twice daily. Discharge instructions given.
--- NOTE | 2020-09-04 12:53 | Discharge Plan ---
Discharge Plan Problem Reviewed?: Yes Disposition: Home, Self Care Condition: Good Prescriptions: NIFEdipine [Procardia Xl] 30 mg PO DAILY #30 tablet Diet: Regular Activity Restrictions: Additional Comments (Previously reviewed routine instructions) Shower Restrictions: No (No tub baths or hot tubs for 4 weeks ) Health Concerns: Call for the following: Headaches that do not improve with pain medications Vision changes that include sparkly lights or black spots Pain in the rught upper part of the belly/abdomen Blood pressures in which the SBP (top number) is 160 or higher OR the DBP (bottom number) is 110 or higher Please check blood pressure twice a day Check blood pressure before taking medication. -If the top number is below 135 or the bottom number is below 70, then hold the medication for one hour -Recheck blood pressure at 1 hour. If it is higher, take the medication. If it is still low, then check again in one hour -If blood pressure is still low after the second hour, do not take the medication and check blood pressure again in 12 hours or in the morning, whichever is first. Additional Instructions or Follow Up instructions: Follow up in clinic this week with a BP check via nurse visit. No Smoking: If you smoke, Please STOP! Call for help. Follow-up with: Chaka Barrow MD [Primary Care Provider] - Augustina Orta MD [Provider Admit Priv/Credential] -
--- NOTE | 2020-09-04 12:55 | DISCHARGE SUMMARY ---
Discharge Summary Admit Date: 09/02/20 Discharge Date: 09/04/20 Discharging Provider: You Condition at Discharge: Good Discharge Disposition: 01 Home, Self Care - DIAGNOSES Admission Diagnoses: Post pre-eclampsia with severe features Discharge Diagnoses with Status of Each Condition: Same - HPI History of Present Illness: Patient is a 29 yo admitted 1 week for preeclampsia with severe features. Patient delivered a twin gestation via and VAVD on 08/25/20. Her and perpartum course had been generally uncomplicated. She presented for her one week follow-up appointment and reported a headache tht woke her from sleep. Blood pressures were initially 140s/80 and then were repeated and were in the 150s/90s. She was sent to triage for evaluation. A random P:C was 0.5, although it was not a catheterized specimen. She had one SBP in the 160s followed with several in mild range. Agter a couple of hours of observation, SBPs were consistently 160 to 170. She was given nifedipine 10 mg po x1 with good response. Headache had been mild with significant neck pain at the occiput. Head/neck pain also noted to resolve with lowering of blood pressures. Denies vision change or RUQ pain. Admitted for seizure prophylaxis and management of severe range pressures. - HOSPITAL COURSE Hospital Course: Patient presented to labor and delivery and was noetd to have blood pressures in the 160s to 170s. A random P:C was 0.5, although it was not a catheterized specimen. She had one SBP in the 160s followed with several in mild range. After a couple of hours of observation, SBPs were consistently 160 to 170. She was given nifedipine 10 mg po x1 with good response. Headache had been mild with significant neck pain at the occiput. Head/neck pain also noted to resolve with lowering of blood pressures. Denies vision change or RUQ pain. Admitted for s eizure prophylaxis and management of severe range pressures. She received magnesium sulfate infusion with a 4g bolus and 2g/hr infusion. Blood pressures were in normal to mild range while on magnesium and no further medications were given. Serial PIH labs were within normal limits. Magnesium was discontinued after 24 hours. Blood pressures started to trend upward with SBPs consistently in the 150s. Isolated SBP of 170 that was 140 on repeat. She was started on nifedipine XL 30 mg po daily given baseline low heart rate. She was observed for 24 hours post discontinuation of magnesium. Blood pressures were consistently in normal to mild range. She was discharged to home with scheduled follow-up within one week and warning signs reviewed. - ALLERGIES Allergies/Adverse Reactions: Allergies Allergy/AdvReac Type Severity Reaction Status Date / Time No Known Drug Allergies Allergy Verified 08/25/20 22:14 - MEDICATIONS Home Medications: Ambulatory Orders Medication Instructions Recorded Confirmed NIFEdipine [Procardia Xl] 30 mg PO DAILY #30 tablet 09/04/20 - LABS Result Diagrams: 09/07/20 05:35 09/05/20 10:16 - FOLLOW UP Follow Up: BP check within one week - TIME SPENT Time Spent in Discharge (Minutes): 30
[2020-09-04] MEDS ORDERED: NIFEdipine ER 30 MG TABLET PO ONE ×2 (20:22→20:37)
[2020-09-04] MEDS ORDERED: NIFEdipine 10 MG CAPSULE PO PRN (21:54)
[2020-09-04] MEDS ORDERED: MAGNESIUM SULFATE 4 GRAM 4 GM/50 ML BAG IV ONE (21:55)
--- NOTE | 2020-09-04 22:16 | PROVIDER PROGRESS NOTE ---
Subjective - Prog Note Date Prog Note Date: 09/04/20 Prog Note Time: 22:00 - Subjective Subjective: Patient checked blood pressure at home shortly after arrival. Called to reports SBPs in 160s. Presented to L&D and had SBPs of 160s and 170s with more than 15 minutes apart. 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 Objective - Vital Signs/Intake & Output Reviewed Vital Signs: Yes Vital Signs: Vital Signs x48h Resp BP 09/04/20 16:19 16 136/84 H 161/93 54 171/81 59 Intake & Output: Intake & Output 09/01/20 09/02/20 09/03/20 09/04/20 23:59 23:59 23:59 23:59 Intake Total 1474.274 0185.167 Output Total 1100 4700 Balance 916.438 1852.167 - Objective General Appearance: positive: No acute distress Cardiovascular: positive: Regular rate & rhythm Abdomen: positive: Non-tender, Other (S&NT/ND. No RUQ TTP) Skin: positive: Color nml (flushed facies) Extremities: positive: Non-tender, No pedal edema Neurologic/Psychiatric: positive: Oriented x3, Other (brisk DTRs) Reflexes: Knee (R): 3+, Knee (L): 3+ - Lab Results Fish Bones: 09/03/20 13:26 09/03/20 13:26 Assessment/Plan - Problem List (1) Pre-eclampsia affecting puerperium Impression: Has received nifedipine XL 30 mg po x1 with no response -Given nifedipine 10 mg SR per [facility] protocol -Start magnesium infusion at 4 mg bolus/2g/hr infusion -CMP and CBC pending -AVOID LABETALOL GIVEN BORDERLINE BRADYCARDIA Desires medication for anxiety -Not -Does not have infants under care at present -Reviewed interaction between magnesium and hydroxyzine vs magnesium and john azepam [place] half life with lorazepam in setting of equal interaction profile Cont inpatient care
--- NOTE | 2020-09-04 22:38 | PROVIDER PROGRESS NOTE ---
Subjective - Prog Note Date Prog Note Date: 09/04/20 Prog Note Time: 22:38 - Subjective Subjective: Blood pressures are in the 120s/70s after nifedipine 10 mg po x1 Starting magnesium Labs pending Objective - Vital Signs/Intake & Output Vital Signs: Vital Signs x48h Resp BP 09/04/20 16:19 16 136/84 H Intake & Output: Intake & Output 09/01/20 09/02/20 09/03/20 09/04/20 23:59 23:59 23:59 23:59 Intake Total 8559.438 1620.167 Output Total 1100 4700 Balance 013.863 8378.167 - Lab Results Fish Bones: 09/03/20 13:26 09/03/20 13:26
[2020-09-04] MEDS: LACTATED RINGERS 1,000 ML IV SCH (23:09)
[2020-09-04 23:23] LABS: BASOPHILS % (AUTO) 0.5 %; EOSINOPHILS # (AUTO) 0.2 10^3/uL (0.0-0.7); EOSINOPHILS % (AUTO) 3.1 %; HCT - HEMATOCRIT 45.7 % (37.0-47.0); HGB - HEMOGLOBIN 15.1 g/dL (12.0-16.0); LYMPHOCYTES # (AUTO) 1.8 10^3/uL (1.5-3.5); LYMPHOCYTES % (AUTO) 22.8 %; MEAN CORPUSCULAR VOLUME 90.7 fL (81.0-99.0); MEAN PLATELET VOLUME 9.5 fL (7.9-10.8); MONOCYTES # (AUTO) 0.7 10^3/uL (0.0-1.0); MONOCYTES % (AUTO) 8.7 %; NEUTROPHILS # (AUTO) 5.1 10^3/uL (1.5-6.6); NEUTROPHILS % (AUTO) 64.5 %; PLT - PLATELET COUNT 262 10^3/uL (130-450); RED BLOOD COUNT 5.04 10^6/uL (4.20-5.40); RED CELL DISTRIBUTION WIDTH 14.6 % (12.0-15.0); WHITE BLOOD COUNT 7.9 x10^3/uL (4.8-10.8)
[2020-09-04 23:31] LABS: ALBUMIN/GLOBULIN RATIO 1.4 (1.0-2.2); BILIRUBIN,TOTAL 0.8 mg/dL (0.2-1.0); CALCIUM 9.2 mg/dL (8.5-10.3); CREATININE 0.5 mg/dL (0.4-1.0); POTASSIUM 3.9 mmol/L (3.5-5.0); TOTAL PROTEIN 6.9 g/dL (6.7-8.2)
[2020-09-04] MEDS: MAGNESIUM SULFATE IN WATER 20 GM/500 ML IV.SOLN IV SCH (23:31)
[2020-09-04] MEDS: LORazepam 0.5 MG TABLET PO PRN (23:38)
[2020-09-05] MEDS: NIFEdipine ER 30 MG TABLET PO SCH (08:47)
[2020-09-05] MEDS: PRENATAL VITAMIN TABLET PO SCH (08:47)
[2020-09-05] MEDS: LORATADINE 10 MG TABLET PO SCH (08:47)
[2020-09-05] MEDS: MAGNESIUM SULFATE IN WATER 20 GM/500 ML IV.SOLN IV SCH ×2 (09:38→20:47)
[2020-09-05 10:22] LABS: BASOPHILS % (AUTO) 0.5 %; EOSINOPHILS # (AUTO) 0.2 10^3/uL (0.0-0.7); EOSINOPHILS % (AUTO) 3.4 %; HGB - HEMOGLOBIN 16.1 g/dL (12.0-16.0); LYMPHOCYTES # (AUTO) 1.5 10^3/uL (1.5-3.5); LYMPHOCYTES % (AUTO) 23.7 %; MEAN CORPUSCULAR HEMOGLOBIN 29.5 pg (27.0-31.0); MEAN CORPUSCULAR HGB CONC 32.2 g/dL (32.0-36.0); MEAN CORPUSCULAR VOLUME 91.6 fL (81.0-99.0); MEAN PLATELET VOLUME 9.1 fL (7.9-10.8); MONOCYTES # (AUTO) 0.6 10^3/uL (0.0-1.0); MONOCYTES % (AUTO) 9.1 %; NEUTROPHILS # (AUTO) 3.9 10^3/uL (1.5-6.6); NEUTROPHILS % (AUTO) 63.1 %; PLT - PLATELET COUNT 267 10^3/uL (130-450); RED BLOOD COUNT 5.46 10^6/uL (4.20-5.40); RED CELL DISTRIBUTION WIDTH 14.6 % (12.0-15.0); WHITE BLOOD COUNT 6.1 x10^3/uL (4.8-10.8)
--- NOTE | 2020-09-05 10:37 | PROVIDER PROGRESS NOTE ---
Subjective - Prog Note Date Prog Note Date: 09/05/20 Prog Note Time: 10:35 - Subjective Subjective: Patient is doing well. Mild SYKES. No vision change/RUQ pain. Has blood pressure well controlled on nifedipine XL 30 mg given this am. Slept well with FOB taking care of children at home. Objective - Vital Signs/Intake & Output Reviewed Vital Signs: Yes Vital Signs: Vital Signs x48h Temp Pulse Resp BP Pulse Ox 09/05/20 08:46 98.2 F 18 119/77 99 09/05/20 04:00 98.4 F 81 16 111/69 98 Intake & Output: Intake & Output 09/02/20 09/03/20 09/04/20 09/05/20 23:59 23:59 23:59 23:59 Intake Total 8241.116 6145.167 500 Output Total 1100 4700 1000 Balance 719.784 5549.167 -500 - Objective General Appearance: positive: No acute distress Respiratory: positive: No respiratory distress, Breath sounds nml Cardiovascular: positive: Regular rate & rhythm Abdomen: positive: Non-tender, Other (S&NT/ND, no RUQ TTP) Skin: positive: No rash, Warm, Dry Extremities: positive: Non-tender, No pedal edema Neurologic/Psychiatric: positive: Oriented x3 Reflexes: Knee (R): 3+, Knee (L): 3+ - Lab Results Fish Bones: 09/05/20 10:16 09/05/20 10:16 Other Labs: Lab Results x24hrs 09/05/20 09/04/20 09/04/20 Range/Units 10:16 23:00 23:00 WBC 6.1 7.9 (4.8-10.8) x10^3/uL RBC 5.46 H 5.04 (4.20-5.40) 10^6/uL Hgb 16.1 H 15.1 (12.0-16.0) g/dL Hct 50.0 H 45.7 (37.0-47.0) % MCV 91.6 90.7 (81.0-99.0) fL MCH 29.5 30.0 (27.0-31.0) pg MCHC 32.2 33.0 (32.0-36.0) g/dL RDW 14.6 14.6 (12.0-15.0) % Plt Count 267 262 (130-450) 10^3/uL MPV 9.1 9.5 (7.9-10.8) fL Neut # (Auto) 3.9 5.1 (1.5-6.6) 10^3/uL Lymph # (Auto) 1.5 1.8 (1.5-3.5) 10^3/uL [place] # (Auto) 0.6 0.7 (0.0-1.0) 10^3/uL Eos # (Auto) 0.2 0.2 (0.0-0.7) 10^3/uL Baso # (Auto) 0.0 0.0 (0.0-0.1) 10^3/uL Absolute Nucleated RBC 0.00 0.00 x10^3/uL Nucleated RBC % 0.0 0.0 /100WBC Sodium 137 (135-145) mmol/L Potassium 3.9 (3.5-5.0) mmol/L Chloride 102 (101-111) mmol/L Carbon Dioxide 23 (21-32) mmol/L Anion Gap 12.0 (6-13) BUN 15 (6-20) mg/dL Creatinine 0.5 (0.4-1.0) mg/dL Estimated GFR (MDRD) 145 (>89) Glucose 108 H (70-100) mg/dL Calcium 9.2 (8.5-10.3) mg/dL Total Bilirubin 0.8 (0.2-1.0) mg/dL AST 21 (10-42) IU/L ALT 32 (10-60) IU/L Alkaline Phosphatase 128 H (42-121) IU/L Total Protein 6.9 (6.7-8.2) g/dL Albumin 4.0 (3.2-5.5) g/dL Globulin 2.9 (2.1-4.2) g/dL Albumin/Globulin Ratio 1.4 (1.0-2.2) Assessment/Plan - Problem List (1) Pre-eclampsia affecting puerperium Impression: Blood pressures have been well controlled on nifedipine HCT showing hemoconcentration -Patient has not lasix and no recent iron -Remainder of hematologic profile wnl Consulted with MFM, no clear recommendations for management per guidelines -repeat labs -Will start lovenox 40 mg SQ as a precautionary measure given hypercoagulable state; awaiting repeat labs -Conferring with [facility] via [facility] per [facility] recommendations Cont antihypertensives with nifedipine XL 30 mgpo BID with holding parameters Cont magnesium infusion until 6 am tomorrow morning Diuresing well. Creatinine well wnl and sodium wnl In-patient care
[2020-09-05 10:38] LABS: ALBUMIN 3.9 g/dL (3.2-5.5); ALBUMIN/GLOBULIN RATIO 1.3 (1.0-2.2); BILIRUBIN,TOTAL 0.5 mg/dL (0.2-1.0); CALCIUM 8.3 mg/dL (8.5-10.3); CREATININE 0.5 mg/dL (0.4-1.0); POTASSIUM 4.1 mmol/L (3.5-5.0)
[2020-09-05 11:38] LABS: BASOPHILS % (AUTO) 0.6 %; EOSINOPHILS # (AUTO) 0.2 10^3/uL (0.0-0.7); EOSINOPHILS % (AUTO) 3.1 %; HCT - HEMATOCRIT 47.8 % (37.0-47.0); LYMPHOCYTES # (AUTO) 1.6 10^3/uL (1.5-3.5); LYMPHOCYTES % (AUTO) 23.1 %; MEAN CORPUSCULAR HEMOGLOBIN 30.2 pg (27.0-31.0); MEAN CORPUSCULAR HGB CONC 33.5 g/dL (32.0-36.0); MEAN CORPUSCULAR VOLUME 90.4 fL (81.0-99.0); MEAN PLATELET VOLUME 8.9 fL (7.9-10.8); MONOCYTES # (AUTO) 0.6 10^3/uL (0.0-1.0); NEUTROPHILS # (AUTO) 4.3 10^3/uL (1.5-6.6); NEUTROPHILS % (AUTO) 63.9 %; PLT - PLATELET COUNT 257 10^3/uL (130-450); RED BLOOD COUNT 5.29 10^6/uL (4.20-5.40); RED CELL DISTRIBUTION WIDTH 14.4 % (12.0-15.0); WHITE BLOOD COUNT 6.7 x10^3/uL (4.8-10.8)
[2020-09-05] MEDS: ENOXAPARIN 40 MG/0.4 ML SYRINGE SUBQ SCH (12:03)
[2020-09-05 12:18] LABS: BILIRUBIN,URINE NEGATIVE (NEGATIVE); GLUCOSE, URINE (UA) NEGATIVE (NEGATIVE); KETONES,URINE (UA) NEGATIVE (NEGATIVE); LEUKOCYTE ESTERASE, URINE NEGATIVE (NEGATIVE); NITRITE,URINE NEGATIVE (NEGATIVE); OCCULT BLOOD,URINE TRACE-INTA (NEGATIVE); PH,URINE 7.5 PH (5.0-7.5); PROTEIN,URINE NEGATIVE (NEGATIVE); UROBILINOGEN,URINE 0.2 (NORMAL) E.U./dL (NORMAL)
[2020-09-05 12:28] LABS: CLARITY,URINE CLEAR (CLEAR)
[2020-09-05 12:54] LABS: RBC,URINE 0-5 /HPF (0-5); SQUAMOUS EPITHELIAL CELL,UR FEW Squamous (<= Few); WBC,URINE 0-3 /HPF (0-5)
[2020-09-05 12:55] LABS: BACTERIA,URINE Few /HPF (None Seen)
--- NOTE | 2020-09-05 16:57 | PROVIDER PROGRESS NOTE ---
Subjective - Prog Note Date Prog Note Date: 09/05/20 Prog Note Time: 16:55 - Subjective Pt reports feeling: Improved (Patient relates she is doing well at this time. She states she has a mild headache which she relates as a 1 out of 10.) Objective - Vital Signs/Intake & Output Reviewed Vital Signs: Yes Vital Signs: Vital Signs x48h Temp Pulse Resp BP Pulse Ox 09/05/20 16:25 36.8 C 92 18 128/83 H 100 09/05/20 13:00 37.1 C 98 18 126/85 H 100 09/05/20 09:40 93 17 121/80 Intake & Output: Intake & Output 09/02/20 09/03/20 09/04/20 09/05/20 23:59 23:59 23:59 23:59 Intake Total 8254.920 1353.167 2050 Output Total 1100 4700 4700 Balance 341.707 0992.167 -2650 - Objective General Appearance: positive: No acute distress, Alert Extremities: negative: Calf tenderness, Jd's sign/cords Reflexes: Knee (R): 2+ (No Clonus), Knee (L): 2+ (No Clonus) - Lab Results Fish Bones: 09/05/20 11:32 09/05/20 10:16 Other Labs: Lab Results x24hrs 09/05/20 09/05/20 09/05/20 Range/Units 12:00 12:00 11:32 WBC 6.7 (4.8-10.8) x10^3/uL RBC 5.29 (4.20-5.40) 10^6/uL Hgb 16.0 (12.0-16.0) g/dL Hct 47.8 H (37.0-47.0) % MCV 90.4 (81.0-99.0) fL MCH 30.2 (27.0-31.0) pg MCHC 33.5 (32.0-36.0) g/dL RDW 14.4 (12.0-15.0) % Plt Count 257 (130-450) 10^3/uL MPV 8.9 (7.9-10.8) fL Neut # (Auto) 4.3 (1.5-6.6) 10^3/uL Lymph # (Auto) 1.6 (1.5-3.5) 10^3/uL [place] # (Auto) 0.6 (0.0-1.0) 10^3/uL Eos # (Auto) 0.2 (0.0-0.7) 10^3/uL Baso # (Auto) 0.0 (0.0-0.1) 10^3/uL Absolute Nucleated RBC 0.00 x10^3/uL Nucleated RBC % 0.0 /100WBC Sodium (135-145) mmol/L Potassium (3.5-5.0) mmol/L Chloride (101-111) mmol/L Carbon Dioxide (21-32) mmol/L Anion Gap (6-13) BUN (6-20) mg/dL Creatinine (0.4-1.0) mg/dL Estimated GFR (MDRD) (>89) Glucose (70-100) mg/dL Calcium (8.5-10.3) mg/dL Total Bilirubin (0.2-1.0) mg/dL AST (10-42) IU/L ALT (10-60) IU/L Alkaline Phosphatase (42-121) IU/L Total Protein (6.7-8.2) g/dL Albumin (3.2-5.5) g/dL Globulin (2.1-4.2) g/dL Albumin/Globulin Ratio (1.0-2.2) Urine Color YELLOW Urine Clarity CLEAR (CLEAR) Urine pH 7.5 (5.0-7.5) PH Ur Specific [place] 1.020 (1.002-1.030) Urine Protein NEGATIVE (NEGATIVE) mg/dL Urine Glucose (UA) NEGATIVE (NEGATIVE) mg/dL Urine Ketones NEGATIVE (NEGATIVE) mg/dL Urine Occult Blood TRACE[place]INTA (NEGATIVE) Urine Nitrite NEGATIVE (NEGATIVE) Urine Bilirubin NEGATIVE (NEGATIVE) Urine Urobilinogen 0.2 (NORMAL) (NORMAL) E.U./dL Ur Leukocyte Esterase NEGATIVE (NEGATIVE) Urine RBC 0-5 (0-5) /HPF Urine WBC 0-3 (0-5) /HPF Ur Squamous Epith Cells FEW Squamous (<= Few) Urine Bacteria Few (None Seen) /HPF Urine Sodium 59.0 mmol/L 09/05/20 09/05/20 09/04/20 Range/Units 10:16 10:16 23:00 WBC 6.1 (4.8-10.8) x10^3/uL RBC 5.46 H (4.20-5.40) 10^6/uL Hgb 16.1 H (12.0-16.0) g/dL Hct 50.0 H (37.0-47.0) % MCV 91.6 (81.0-99.0) fL MCH 29.5 (27.0-31.0) pg MCHC 32.2 (32.0-36.0) g/dL RDW 14.6 (12.0-15.0) % Plt Count 267 (130-450) 10^3/uL MPV 9.1 (7.9-10.8) fL Neut # (Auto) 3.9 (1.5-6.6) 10^3/uL Lymph # (Auto) 1.5 (1.5-3.5) 10^3/uL [place] # (Auto) 0.6 (0.0-1.0) 10^3/uL Eos # (Auto) 0.2 (0.0-0.7) 10^3/uL Baso # (Auto) 0.0 (0.0-0.1) 10^3/uL Absolute Nucleated RBC 0.00 x10^3/uL Nucleated RBC % 0.0 /100WBC Sodium 139 137 (135-145) mmol/L Potassium 4.1 3.9 (3.5-5.0) mmol/L Chloride 100 L 102 (101-111) mmol/L Carbon Dioxide 28 23 (21-32) mmol/L Anion Gap 11.0 12.0 (6-13) BUN 10 15 (6-20) mg/dL Creatinine 0.5 0.5 (0.4-1.0) mg/dL Estimated GFR (MDRD) 145 145 (>89) Glucose 76 108 H (70-100) mg/dL Calcium 8.3 L 9.2 (8.5-10.3) mg/dL Total Bilirubin 0.5 0.8 (0.2-1.0) mg/dL AST 26 21 (10-42) IU/L ALT 32 32 (10-60) IU/L Alkaline Phosphatase 130 H 128 H (42-121) IU/L Total Protein 7.0 6.9 (6.7-8.2) g/dL Albumin 3.9 4.0 (3.2-5.5) g/dL Globulin 3.1 2.9 (2.1-4.2) g/dL Albumin/Globulin Ratio 1.3 1.4 (1.0-2.2) Urine Color Urine Clarity (CLEAR) Urine pH (5.0-7.5) PH Ur Specific [place] (1.002-1.030) Urine Protein (NEGATIVE) mg/dL Urine Glucose (UA) (NEGATIVE) mg/dL Urine Ketones (NEGATIVE) mg/dL Urine Occult Blood (NEGATIVE) Urine Nitrite (NEGATIVE) Urine Bilirubin (NEGATIVE) Urine Urobilinogen (NORMAL) E.U./dL Ur Leukocyte Esterase (NEGATIVE) Urine RBC (0-5) /HPF Urine WBC (0-5) /HPF Ur Squamous Epith Cells (<= Few) Urine Bacteria (None Seen) /HPF Urine Sodium mmol/L 09/04/20 Range/Units 23:00 WBC 7.9 (4.8-10.8) x10^3/uL RBC 5.04 (4.20-5.40) 10^6/uL Hgb 15.1 (12.0-16.0) g/dL Hct 45.7 (37.0-47.0) % MCV 90.7 (81.0-99.0) fL MCH 30.0 (27.0-31.0) pg MCHC 33.0 (32.0-36.0) g/dL RDW 14.6 (12.0-15.0) % Plt Count 262 (130-450) 10^3/uL MPV 9.5 (7.9-10.8) fL Neut # (Auto) 5.1 (1.5-6.6) 10^3/uL Lymph # (Auto) 1.8 (1.5-3.5) 10^3/uL Bent # (Auto) 0.7 (0.0-1.0) 10^3/uL Eos # (Auto) 0.2 (0.0-0.7) 10^3/uL Baso # (Auto) 0.0 (0.0-0.1) 10^3/uL Absolute Nucleated RBC 0.00 x10^3/uL Nucleated RBC % 0.0 /100WBC Sodium (135-145) mmol/L Potassium (3.5-5.0) mmol/L Chloride (101-111) mmol/L Carbon Dioxide (21-32) mmol/L Anion Gap (6-13) BUN (6-20) mg/dL Creatinine (0.4-1.0) mg/dL Estimated GFR (MDRD) (>89) Glucose (70-100) mg/dL Calcium (8.5-10.3) mg/dL Total Bilirubin (0.2-1.0) mg/dL AST (10-42) IU/L ALT (10-60) IU/L Alkaline Phosphatase (42-121) IU/L Total Protein (6.7-8.2) g/dL Albumin (3.2-5.5) g/dL Globulin (2.1-4.2) g/dL Albumin/Globulin Ratio (1.0-2.2) Urine Color Urine Clarity (CLEAR) Urine pH (5.0-7.5) PH Ur Specific Sieper (1.002-1.030) Urine Protein (NEGATIVE) mg/dL Urine Glucose (UA) (NEGATIVE) mg/dL Urine Ketones (NEGATIVE) mg/dL Urine Occult Blood (NEGATIVE) Urine Nitrite (NEGATIVE) Urine Bilirubin (NEGATIVE) Urine Urobilinogen (NORMAL) E.U./dL Ur Leukocyte Esterase (NEGATIVE) Urine RBC (0-5) /HPF Urine WBC (0-5) /HPF Ur Squamous Epith Cells (<= Few) Urine Bacteria (None Seen) /HPF Urine Sodium mmol/L Assessment/Plan - Problem List (1) Pre-eclampsia affecting puerperium Impression: Patient is currently on Magnesium which appears to be helping with her blood pressures as well as her Procardia. Blood pressure this afternoon was 128/80. She is diuresing quite well at this point. She has a erythropoietin ordered as well as a CBC and a magnesium level for this evening at 6:00. We will plan to cease her Magnesium tomorrow morning.
[2020-09-05 17:30] LABS: BASOPHILS % (AUTO) 0.6 %; EOSINOPHILS # (AUTO) 0.2 10^3/uL (0.0-0.7); EOSINOPHILS % (AUTO) 3.3 %; HCT - HEMATOCRIT 47.4 % (37.0-47.0); HGB - HEMOGLOBIN 15.6 g/dL (12.0-16.0); LYMPHOCYTES # (AUTO) 1.5 10^3/uL (1.5-3.5); LYMPHOCYTES % (AUTO) 22.5 %; MEAN CORPUSCULAR HEMOGLOBIN 29.9 pg (27.0-31.0); MEAN CORPUSCULAR HGB CONC 32.9 g/dL (32.0-36.0); MEAN CORPUSCULAR VOLUME 90.8 fL (81.0-99.0); MEAN PLATELET VOLUME 8.9 fL (7.9-10.8); MONOCYTES # (AUTO) 0.5 10^3/uL (0.0-1.0); MONOCYTES % (AUTO) 7.9 %; NEUTROPHILS # (AUTO) 4.3 10^3/uL (1.5-6.6); NEUTROPHILS % (AUTO) 65.5 %; PLT - PLATELET COUNT 264 10^3/uL (130-450); RED BLOOD COUNT 5.22 10^6/uL (4.20-5.40); RED CELL DISTRIBUTION WIDTH 14.5 % (12.0-15.0); WHITE BLOOD COUNT 6.6 x10^3/uL (4.8-10.8)
[2020-09-05] MEDS: LACTATED RINGERS 1,000 ML IV SCH (19:15)
[2020-09-05] MEDS: LORazepam 0.5 MG TABLET PO PRN (20:47)
[2020-09-06] MEDS: MAGNESIUM SULFATE IN WATER 20 GM/500 ML IV.SOLN IV SCH (06:04)
[2020-09-06 08:06] LABS: BASOPHILS # (AUTO) 0.1 10^3/uL (0.0-0.1); BASOPHILS % (AUTO) 0.9 %; EOSINOPHILS # (AUTO) 0.2 10^3/uL (0.0-0.7); EOSINOPHILS % (AUTO) 4.3 %; HCT - HEMATOCRIT 48.9 % (37.0-47.0); LYMPHOCYTES # (AUTO) 1.3 10^3/uL (1.5-3.5); LYMPHOCYTES % (AUTO) 23.7 %; MEAN CORPUSCULAR HEMOGLOBIN 29.6 pg (27.0-31.0); MEAN CORPUSCULAR HGB CONC 32.7 g/dL (32.0-36.0); MEAN CORPUSCULAR VOLUME 90.4 fL (81.0-99.0); MEAN PLATELET VOLUME 9.1 fL (7.9-10.8); MONOCYTES # (AUTO) 0.4 10^3/uL (0.0-1.0); MONOCYTES % (AUTO) 7.1 %; NEUTROPHILS # (AUTO) 3.4 10^3/uL (1.5-6.6); NEUTROPHILS % (AUTO) 63.8 %; PLT - PLATELET COUNT 265 10^3/uL (130-450); RED BLOOD COUNT 5.41 10^6/uL (4.20-5.40); RED CELL DISTRIBUTION WIDTH 14.5 % (12.0-15.0); WHITE BLOOD COUNT 5.4 x10^3/uL (4.8-10.8)
[2020-09-06] MEDS: ACETAMINOPHEN 325 MG TABLET PO SCH ×2 (08:57→18:22)
[2020-09-06] MEDS: NIFEdipine ER 30 MG TABLET PO SCH ×3 (08:58→21:11)
[2020-09-06] MEDS: PRENATAL VITAMIN TABLET PO SCH (08:58)
[2020-09-06] MEDS: ENOXAPARIN 40 MG/0.4 ML SYRINGE SUBQ SCH (08:59)
[2020-09-06] MEDS: LORATADINE 10 MG TABLET PO SCH (10:18)
--- NOTE | 2020-09-06 15:23 | PROVIDER PROGRESS NOTE ---
Subjective - Prog Note Date Prog Note Date: 09/06/20 Prog Note Time: 14:20 - Subjective Subjective: Magnesium was stopped at 06:00. Blood pressures were in normal range, below parameters for nifedipine and antihypertensives were not given. No PIH symptoms, no SYKES. HCT drawn this am and has dropped but remains in high range. Received Lovenox this am. No pain. Continues to have large urine output. Objective - Vital Signs/Intake & Output Reviewed Vital Signs: Yes Vital Signs: Vital Signs x48h Temp Pulse Resp BP Pulse Ox 09/06/20 13:14 98.2 F 82 16 123/77 99 09/06/20 09:30 99 16 118/75 99 09/06/20 07:30 97.7 F 87 16 121/83 H 99 Intake & Output: Intake & Output 09/03/20 09/04/20 09/05/20 09/06/20 23:59 23:59 23:59 23:59 Intake Total 6571.167 4450 3839.584 Output Total 4700 6125 2200 Balance 1871.167 -1675 1639.584 - Objective General Appearance: positive: No acute distress Respiratory: positive: No respiratory distress, Breath sounds nml Cardiovascular: positive: Regular rate & rhythm Abdomen: positive: Other (S&NT/ND. No RUQ TTP) Skin: positive: Color nml, No rash, Warm Extremities: positive: Non-tender, No pedal edema Neurologic/Psychiatric: positive: Oriented x3, Other (DTRs markedly less brisk) Reflexes: Knee (R): 1+, Knee (L): 1+ - Lab Results Fish Bones: 09/06/20 07:54 09/05/20 10:16 Other Labs: Lab Results x24hrs 09/06/20 09/05/20 09/05/20 Range/Units 07:54 17:24 17:24 WBC 5.4 6.6 (4.8-10.8) x10^3/uL RBC 5.41 H 5.22 (4.20-5.40) 10^6/uL Hgb 16.0 15.6 (12.0-16.0) g/dL Hct 48.9 H 47.4 H (37.0-47.0) % MCV 90.4 90.8 (81.0-99.0) fL MCH 29.6 29.9 (27.0-31.0) pg MCHC 32.7 32.9 (32.0-36.0) g/dL RDW 14.5 14.5 (12.0-15.0) % Plt Count 265 264 (130-450) 10^3/uL MPV 9.1 8.9 (7.9-10.8) fL Neut # (Auto) 3.4 4.3 (1.5-6.6) 10^3/uL Lymph # (Auto) 1.3 L 1.5 (1.5-3.5) 10^3/uL [place] # (Auto) 0.4 0.5 (0.0-1.0) 10^3/uL Eos # (Auto) 0.2 0.2 (0.0-0.7) 10^3/uL Baso # (Auto) 0.1 0.0 (0.0-0.1) 10^3/uL Absolute Nucleated RBC 0.00 0.00 x10^3/uL Nucleated RBC % 0.0 0.0 /100WBC Magnesium 5.0 H* (1.7-2.8) mg/dL Assessment/Plan - Problem List (1) Pre-eclampsia affecting puerperium Impression: Reviewed hemoconcentration with MFM at [place] and Heme/Onc at [facility]. -Lovenox given status, bedrest, and now with isolated polycythemia. -Sent Epo levels per Heme recommendation. Send out lab -Will check CBC in am BPs now wnl in the immediate period after discontinuing magnesium. Not yet meeting parameters to given antihypertensives. -Will observe to 24 hour post magnesium. Cont in patient care
[2020-09-06] MEDS: DOCUSATE SODIUM 100 MG CAPSULE PO SCH (21:10)
[2020-09-06] MEDS: SIMETHICONE CHEW 80 MG TABLET PO SCH (21:10)
[2020-09-06] MEDS: LORazepam 0.5 MG TABLET PO PRN (21:10)
[2020-09-07 05:52] LABS: BASOPHILS % (AUTO) 0.7 %; EOSINOPHILS # (AUTO) 0.3 10^3/uL (0.0-0.7); EOSINOPHILS % (AUTO) 5.7 %; HCT - HEMATOCRIT 47.3 % (37.0-47.0); HGB - HEMOGLOBIN 15.3 g/dL (12.0-16.0); LYMPHOCYTES # (AUTO) 1.7 10^3/uL (1.5-3.5); LYMPHOCYTES % (AUTO) 31.1 %; MEAN CORPUSCULAR HEMOGLOBIN 29.4 pg (27.0-31.0); MEAN CORPUSCULAR HGB CONC 32.3 g/dL (32.0-36.0); MONOCYTES # (AUTO) 0.5 10^3/uL (0.0-1.0); MONOCYTES % (AUTO) 9.3 %; NEUTROPHILS # (AUTO) 2.9 10^3/uL (1.5-6.6); PLT - PLATELET COUNT 246 10^3/uL (130-450); RED CELL DISTRIBUTION WIDTH 14.1 % (12.0-15.0); WHITE BLOOD COUNT 5.4 x10^3/uL (4.8-10.8)
[2020-09-07] MEDS: NIFEdipine ER 30 MG TABLET PO SCH (09:00)
[2020-09-07] MEDS: DOCUSATE SODIUM 100 MG CAPSULE PO SCH (09:13)
[2020-09-07] MEDS: LORATADINE 10 MG TABLET PO SCH (09:13)
[2020-09-07] MEDS: PRENATAL VITAMIN TABLET PO SCH (09:13)
[2020-09-07] MEDS: SIMETHICONE CHEW 80 MG TABLET PO SCH (09:13)
[2020-09-07] MEDS: ENOXAPARIN 40 MG/0.4 ML SYRINGE SUBQ SCH (09:15)
--- NOTE | 2020-09-07 12:55 | PROVIDER PROGRESS NOTE ---
Subjective - Prog Note Date Prog Note Date: 09/07/20 Prog Note Time: 12:53 - Subjective Subjective: Patient is doing well. BPs well controlled this am and has not taken medication. Yesterday afternoon, blood pressures started rise and she was given nifed 30 mg. About 4-5 hours later, BPs continued to rise. She was given a second dose on nifed 30 and BPs were wnl since. No SYKES Has been diuresing quite a bit. UOP > 4000 yesterday and 6500 the day prior. Also had significant night sweats last night. No SYKES/vision change/RUQ pain. Objective - Vital Signs/Intake & Output Reviewed Vital Signs: Yes Vital Signs: Vital Signs x48h Temp Pulse Resp BP Pulse Ox 09/07/20 11:58 86 16 122/86 H 99 09/07/20 08:09 98.8 F 94 16 126/80 100 09/07/20 05:00 80 16 121/74 98 Intake & Output: Intake & Output 09/04/20 09/05/20 09/06/20 09/07/20 23:59 23:59 23:59 23:59 Intake Total 4450 4789.584 500 Output Total 6125 4040 Balance -1675 749.584 500 - Objective General Appearance: positive: No acute distress Respiratory: positive: No respiratory distress, Breath sounds nml Cardiovascular: positive: Regular rate & rhythm Abdomen: positive: Non-tender, Other (No RUQ TTP) Skin: positive: Color nml, No rash, Warm, Dry Extremities: positive: No pedal edema Neurologic/Psychiatric: positive: Oriented x3, Other (DTRs markedly reduced) Reflexes: Knee (R): 1+, Knee (L): 1+ - Lab Results Fish Bones: 09/07/20 05:35 09/05/20 10:16 Other Labs: Lab Results x24hrs 09/07/20 Range/Units 05:35 WBC 5.4 (4.8-10.8) x10^3/uL RBC 5.20 (4.20-5.40) 10^6/uL Hgb 15.3 (12.0-16.0) g/dL Hct 47.3 H (37.0-47.0) % MCV 91.0 (81.0-99.0) fL MCH 29.4 (27.0-31.0) pg MCHC 32.3 (32.0-36.0) g/dL RDW 14.1 (12.0-15.0) % Plt Count 246 (130-450) 10^3/uL MPV 9.0 (7.9-10.8) fL Neut # (Auto) 2.9 (1.5-6.6) 10^3/uL Lymph # (Auto) 1.7 (1.5-3.5) 10^3/uL [place] # (Auto) 0.5 (0.0-1.0) 10^3/uL Eos # (Auto) 0.3 (0.0-0.7) 10^3/uL Baso # (Auto) 0.0 (0.0-0.1) 10^3/uL Absolute Nucleated RBC 0.00 x10^3/uL Nucleated RBC % 0.0 /100WBC Assessment/Plan - Problem List (1) Pre-eclampsia affecting puerperium Impression: Reviewed my concern for exacerbation in the pm hour. Will cont to monitor through the afternoon early evening. If patient needs nifedipine, will give 60 mg dose once in the evening HCT is trending down Will cont Lovenox through inpatient stay and discontinue when home Dispo pending BPs through the afternoon, early evening
[2020-09-07] MEDS: ACETAMINOPHEN 325 MG TABLET PO SCH (13:40)
[2020-09-07 18:57] VITALS: BP 118/74
== END 2020-09-07 19:40 | disposition home or self-care (01) | DRG 776 ==
LOC: WFO 11:24 → FBP 11:25 → WFO 16:46 → FBP 16:46 → UNDODISIN 09-04 16:50 → FBP 09-04 21:58
PROVIDERS: ADMIT Obstetrics & Gynecology; ATTEND Obstetrics & Gynecology
DX: O14.15 Severe pre-eclampsia, complicating the puerperium (principal); O99.345 Other mental disorders complicating the puerperium; F41.9 Anxiety disorder, unspecified
CPT/HCPCS: 36415; 80053; 81001; 82570; 82668; 83735; 83935; 84156; 84300; 85025; 99215; A9270; J1650; J7120; 84550; 86850; J3475

== ENCOUNTER 2021-12-29 15:17 | Outpatient (CLI) | payer OTHER ==
--- NOTE | 2021-12-29 16:54 | Ultrasound Report ---
PROCEDURE: Pelvic w/Transvaginal INDICATIONS: PELVIC PAIN TECHNIQUE: Real-time scanning was performed of the pelvic organs, with image documentation. Additional endovagi nal scanning was necessary due to incomplete visualization of the adnexal and endometrial structures by transabdominal scanning. COMPARISON: None. FINDINGS: Uterus: Uterus is anteverted and normal in size at 7.5 x 4.1 x 6.4 cm. The myometrium is homogeneou s. The endometrium measures 8.2 mm in combined thickness. IUD is in appropriate position. Ovaries: The right ovary measures 4.7 x 2.0 x 3.7 cm, with a calculated ovarian volume of 18.5 cc. The left ovary measures 3.8 x 1.0 x 2.5 cm, with a calculated ovarian volume of 4.8 cc. There is a co mplex focus of echogenicity within the right ovary measuring 2.2 x 1.4 x 2.2 cm. Other: No pathologic free abdominal or pelvic fluid. IMPRESSION: Complex right ovarian cyst suggestive hemorrhagic cyst. Reviewed by: Antonella Reynaga MD on 12/29/2021 4:52 PM PDT Approved by: Antonella Reynaga MD on 12/29/2021 4:52 PM PDT Station ID: [id number]
== END 2021-12-29 15:18 | disposition home or self-care (01) ==
LOC: DI 15:17
PROVIDERS: ATTEND Nurse Practitioner Obstetrics & Gynecology
DX: N94.0 Mittelschmerz (principal); N83.291 Other ovarian cyst, right side